=== PATIENT | male | born 1960 | race Caucasian/White ===

== ENCOUNTER 2020-11-21 13:43 | Inpatient (IN) | payer MEDICAID, SELFPAY ==
[2020-11-21] VITALS (11 sets, daily range): BP systolic 152–177; BP diastolic 99–111; PULSE 87–94; RESP 18–29; TEMP 36.9–37; O2SAT 96–99; BMI 26.6
--- NOTE | 2020-11-21 14:52 | ECG_ITS ---
[facility] Test Date: 2020-11-21 Pat Name: Mikal Mancuso Department: Room: Gender: Male [employer]: : 1960 Requested By: Kathya Pratt Order Number: [id number] Hakeem MD: Jonathan Tan M.D. Measurements Intervals [place] Rate: 83 P: 64 PA: 180 QRS: 49 QRSD: 87 T: 55 QT: 358 QTc: 421 Interpretive Statements SINUS RHYTHM POSSIBLE LEFT ATRIAL ENLARGEMENT [-0.1mV P-WAVE IN V1/V2] No previous ECG available for comparison Electronically Signed On 11-21-2020 19:39:33 CDT by Jonathan Tan M.D. [email or web address]) by [id number]
--- NOTE | 2020-11-21 14:52 | XR_ITS ---
WS: [id number] Portable AP upright chest, 11/21/2020 Clinical Data: dyspnea Comparison: None. Findings: No nodules, masses or effusions are seen. The heart is normal. The pulmonary vascularity is not increased. No pneumonia or pneumothorax is seen. The aortic arch and descending thoracic aorta s hows mild tortuosity. The diaphragms are flattened. XR/XR chest 1V portable [id number] Impression: Atherosclerosis and hyperinflation.
--- NOTE | 2020-11-21 14:52 | CT_ITS ---
WS: [id number] CT ABDOMEN AND PELVIS WITH CONTRAST HISTORY: lower abd pain TECHNIQUE: Imaging performed of the abdomen and pelvis with IV contrast. Single phase imaging of the abdomen. Coronal and sagittal reformats are submitted. All CT scans at [facility] use at [address] [facility] one of these dose optimization techniques: automated exposure control; mA and/or kV adjustment per patient size (includes targeted exams where dose is matched to clinical indication); or iterative re construction. IV CONTRAST: Omnipaque 300; 95 mL IV. Oral contrast: Yes. DLP: 1556.95 mGy.cm COMPARISON: None available. Lower thorax: Mild hyperexpansion of the lung bases. Heart is normal size. Moderate size hernia. Liver/biliary system: Normal size with no intrahepatic dilatation. Gallbladder: Mildly contracted gallbladder. No stones or pericholecystic fluid. Pancreas: Normal size pancreas and pancreatic duct. No adjacent inflammation. Spleen: Normal size spleen. No mass or infarct. Adrenal glands: Normal. Right kidney: Mildly enlarged kidney with perinephric stranding. Severe hydroureteronephrosis. Marked tortuosity of the ureter due to long-standing obstruction. Ureter is dilated to the urinary bladder. No stones within the ureter or kidney. Left kidney: Mildly enlarged kidney and perinephric stranding. Severe hydroureteronephrosis. Tortuous dilated ureter to the urinary bladder. Aorta: Mild atherosclerosis with no aneurysm. Lymphadenopathy: There are several retroperitoneal lymph nodes. These lymph nodes are numerous and mi ldly enlarged. The largest measures 10 mm along the inferior RIGHT aorta. There are additional smalle r periaortic and aortocaval lymph nodes. Free fluid: None. GI tract: Normal appendix. No GI tract obstruction. Abdominal wall: Unremarkable abdominal wall. No hernia. Pelvis: Diffuse thickening and irregularity of the bladder wall. There is no focal discrete area of s oft tissue thickening. Bladder is measuring 16.5 cm in length. There is mild prostate gland hypertrop hy. Bones: Mild degenerative disc disease at L5-S1. CT/CT abdomen pelvis w con* [id number] IMPRESSION: 1. Severe bilateral hydroureteronephrosis. Cause of the obstruction may be an overly distended urinary bladder due to bladder hypertrophy and outlet obstruct ion. No stone or mass identified at the UV junctions of either ureter. 2. Markedly overly distended urinary bladder with diffuse bladder wall thicken ing. 3. Small retroperitoneal lymph nodes. Reactive versus early neoplastic disease . 4. Mild enlarged prostate gland.
[2020-11-21] MEDS: iohexol 300 mg/mL 100 mL Btl IV (15:06)
--- NOTE | 2020-11-21 15:23 | ED_ITS ---
HPI - General Adult General: Chief complaint: Abdominal Pain Stated complaint: ABD PAIN, BLOOD IN URINE Time Seen by Provider: 11/21/20 14:38 History of Present Illness: HPI narrative: Patient is a 60-year-old male with history of BPH, chronic urinary retention who presents the emergency room for evaluation of lower abdominal pain. Patient tells me that he has been having abdominal pain x1 week after he developed a rash in the legs extending to the groin lower abdomen x2 weeks. Patient reports the rash is very itchy and occasionally burning. Patient has no other rashes in other parts of the body. Denies any contact with any plants or other allergies. Patient also reports mild blood in the urine and symptoms of dysuria. In addition, patient reports mild shortness of breath, cough, and chest pain in that same time. Denies any fever/chills, prior abdominal surgery, history of renal colic, or contact with Covid personnel. Onset:2 weeks ago (rash), 1 week ago (hydro) Duration:2 weeks Location:ongoing Severity:moderate Review of Systems Narrative: Constitutional: No fever, no chills. HEENT: No vision changes CV: No chest pain, no palpitations PULM: +cough, +dyspnea. GI: +abdominal pain, no N/V/D. : No dysuria MSKEL: No muscle pain SKIN: +leg and groin rash NEURO: No headache, no focal weakness. HEME: No visible bruises PSYCH: Normal mood Physical Exam Narrative: EXAM NARRATIVE: Head: Atraumatic Eyes: PERRL, conjunctiva without injection ENT: Mucous membrane moist NECK: Supple, ROM intact LUNGS: LCTAB, no crackles/rhonchi CV: RRR ABDOMEN: Soft, + mild rash in the lower abdomen, moderate tenderness to palpation of the lower abdomen, moderate CVA tenderness bilaterally, no guarding no rebound tenderness EXTREMITY: +Lacy erythematous purplish rash extending to the groin and loewr abdomen and inner thigh SKIN: +lacy erythematous/mildly excoriated rash on groin, inner thigh, and lower abdomen most pronounced in the skin folds NEURO: Awake and alert, no focal motor deficits PSYCH: Normal mood and affect Course Vital Signs: Vital signs: Vital Signs Temperature 98.3 F 11/22/20 04:00 Pulse Rate 106 H 11/22/20 05:34 Respiratory Rate 19 H 11/22/20 04:00 Blood Pressure 159/99 11/22/20 04:00 Pulse Oximetry 95 11/22/20 04:00 MDM - General Adult MDM Narrative: Medical decision making narrative: 60-year-old gentleman with a history of hypertension, BPH who presents the emergency room for concerns of rash x2 weeks, lower abdominal pain, dysuria, hematuria, shortness of breath. Work-up today including blood work and CT abdomen+pelvis for abdominal pain and chest pain. White count noted to be 15.2. On CT abdomen pelvis, patient is noted to have bilateral hydro with mostly distended bladder findings consistent with cystitis. A Vickers was placed and patient had a return of 1.7 L of fluid. Given significant WBC, Cr of 11.0 and cystitis, patient received a dose of ceftriaxone in the emergency room. Cr elevation is likely post-renal. EKG showing regular sinus rhythm at HT of [83]. Normal axis. No ST elevations/depressions to suggest coronary occlusion. Normal WV, QRS, QT intervals. EKG is nonischemic, x-ray chest within normal limit. Patient does noted to have troponin of 52. Patient received aspirin. Has not had a recent cardiac work- up will be admitted to the hospital for high risk chest pain. Disposition: Admission Lab Data: Labs: Lab Results 11/21/20 11/21/20 11/21/20 Range/Units 14:52 14:58 15:37 WBC 15.2 H (4.0-10.0) 10^3/ uL RBC 3.15 L (4.1-5.3) 10^6/u L Hgb 9.7 L (11.7-16.6) g/dL Hct 29.7 L (42.0-52.0) % MCV 94.3 H (80-94) fl MCH 30.8 (28.0-34.0) pg MCHC 32.7 (30.0-36.0) g/dL RDW 12.5 (12.1-15.1) % Plt Count 303 (130-400) 10^3/c mm MPV 10.9 H (7.4-10.4) fL Neut % (Auto) 76.2 % Lymph % (Auto) 7.9 % [place] % (Auto) 11.8 % Eos % (Auto) 2.2 % Baso % (Auto) 0.5 % Neut # (Auto) 11.58 H (1.8-7.7) 10^3/u L Lymph # (Auto) 1.2 (0.8-4.8) 10^3/u L [place] # (Auto) 1.8 H (0.2-0.9) 10^3/u L Eos # (Auto) 0.3 (0.0-0.8) 10^3/u L Baso # (Auto) 0.1 (0.0-0.1) 10^3/u L Nucleated RBC % (a uto) 0 % Nucleated RBCs # 0.0 /100WBC Sodium (136-145) mmol/L Potassium (3.5-5.1) mmol/L Chloride (98-107) mmol/L Carbon Dioxide (22-29) mmol/L Anion Gap (5-19) BUN (6-20) mg/dL Creatinine (0.7-1.2) mg/dL GFR Calculation (90-130) mL/min Glucose (65-115) mg/dL Calculated Osmolal ity (285-295) mOsm/k g Calcium (8.5-10.5) mg/dL Total Bilirubin (0.15-1.2) mg/dL AST (0-40) U/L ALT (0-41) U/L Alkaline Phosphata se (40-130) IU/L Troponin T Baselin e (0-15) ng/L Total Protein (6.6-8.7) g/dL Albumin (3.5-5.2) g/dL Globulin (1.3-4.6) g/dL Lipase (13-60) U/L Urine Color Yellow (Yellow) Urine Appearance Hazy A (CLEAR) Urine pH 5 (5-7) Ur Specific Gravit y 1.005 (1.005-1.030) Urine Protein 1+ H (Negative) Urine Glucose (UA) Norm (Normal) Urine Ketones Negative (Negative) Urine Blood 3+ H (Negative) Urine Nitrate Positive H (Negative) Urine Bilirubin Neg (Negative) Urine Urobilinogen Norm (Negative) mg/dL Ur Leukocyte Glenny ase 2+ H (Negative) Urine RBC 5-10 H (0-2) /hpf Urine WBC Too numerous to c nt H (0-5) /hpf Ur Squamous Epith Cells None (0-5) /hpf Amorphous Sediment Not Reportable Urine Bacteria 4+ H (NONE) /hpf SARS-CoV-2 Ag (Rap id) Negative (Negative) 11/21/20 11/21/20 Range/Units 15:37 15:37 WBC (4.0-10.0) 10^3/ uL RBC (4.1-5.3) 10^6/u L Hgb (11.7-16.6) g/dL Hct (42.0-52.0) % MCV (80-94) fl MCH (28.0-34.0) pg MCHC (30.0-36.0) g/dL RDW (12.1-15.1) % Plt Count (130-400) 10^3/c mm MPV (7.4-10.4) fL Neut % (Auto) % Lymph % (Auto) % [place] % (Auto) % Eos % (Auto) % Baso % (Auto) % Neut # (Auto) (1.8-7.7) 10^3/u L Lymph # (Auto) (0.8-4.8) 10^3/u L [place] # (Auto) (0.2-0.9) 10^3/u L Eos # (Auto) (0.0-0.8) 10^3/u L Baso # (Auto) (0.0-0.1) 10^3/u L Nucleated RBC % (a uto) % Nucleated RBCs # /100WBC Sodium 130 L (136-145) mmol/L Potassium 4.3 (3.5-5.1) mmol/L Chloride 92 L (98-107) mmol/L Carbon Dioxide 14 L (22-29) mmol/L Anion Gap 28.3 H (5-19) BUN 112 H* (6-20) mg/dL Creatinine 11.0 H* (0.7-1.2) mg/dL GFR Calculation 4.8 L (90-130) mL/min Glucose 120 H (65-115) mg/dL Calculated Osmolal ity 307 H (285-295) mOsm/k g Calcium 9.0 (8.5-10.5) mg/dL Total Bilirubin 0.2 (0.15-1.2) mg/dL AST 11 (0-40) U/L ALT 26 (0-41) U/L Alkaline Phosphata se 110 (40-130) IU/L Troponin T Baselin e 52 H (0-15) ng/L Total Protein 7.2 (6.6-8.7) g/dL Albumin 3.6 (3.5-5.2) g/dL Globulin 3.6 (1.3-4.6) g/dL Lipase 70 H (13-60) U/L Urine Color (Yellow) Urine Appearance (CLEAR) Urine pH (5-7) Ur Specific Gravit y (1.005-1.030) Urine Protein (Negative) Urine Glucose (UA) (Normal) Urine Ketones (Negative) Urine Blood (Negative) Urine Nitrate (Negative) Urine Bilirubin (Negative) Urine Urobilinogen (Negative) mg/dL Ur Leukocyte Glenny ase (Negative) Urine RBC (0-2) /hpf Urine WBC (0-5) /hpf Ur Squamous Epith Cells (0-5) /hpf Amorphous Sediment Urine Bacteria (NONE) /hpf SARS-CoV-2 Ag (Rap id) (Negative) Imaging Data^: Other Imaging: Radiologist's impression: [address] [id number] ReportSigned Patient: Mikal Mancuso #: [id number]: 1960cct#:[id number]/Sex: 60 / MADM Date: 11/21/20[facility]Attending Dr: Ordering Provider/Ordering MD: Kathya Pratt MD Date of Service: 11/21/20 Procedure(s): XR chest 1V portable [id number] Accession Number(s): [id number] Report Number: [id number] WS: [id number] Portable AP upright chest, 11/21/2020 Clinical Data: dyspnea Comparison: None. Findings: No nodules, masses or effusions are seen. The heart is normal. The pulmonary vascularity is not increased. No pneumonia or pneumothorax is seen. The aortic arch and descending thoracic aorta shows mild tortuosity. The diaphragms are flattened. XR/XR chest 1V portable [id number] Impression: Atherosclerosis and hyperinflation. Dictated By:Franca Lechuga MDSigned By:Franca Lechuga MDSigned Date/Time:11/21/20 1521DD/ 1520 [facility] [place], [place] [address]QN Scan ReportSigned Patient: Mikal Mancuso #: [id number]: 1960cct#:[id number]/Sex: 60 / MADM Date: 11/21/20Loc: ERRoom/Bed:Attending Dr: Ordering Provider/Ordering MD: Kathya Pratt MD Date of Service: 11/21/20 Procedure(s): CT abdomen pelvis w con* [id number] Accession Number(s): [id number] Report Number: [id number] WS: [id number] CT ABDOMEN AND PELVIS WITH CONTRAST HISTORY: lower abd pain TECHNIQUE: Imaging performed of the abdomen and pelvis with IV contrast. Single phase imaging of the abdomen. Coronal and sagittal reformats are submitted. All CT scans at [facility] use at least one of these dose optimization techniques: automated exposure control; mA and/or kV adjustment per patient size (includes targeted exams where dose is matched to clinical indication); or iterative reconstruction. IV CONTRAST: Omnipaque 300; 95 mL IV. Oral contrast: Yes. DLP: 1556.95 mGy.cm COMPARISON: None available. Lower thorax: Mild hyperexpansion of the lung bases. Heart is normal size. Moderate size hernia. Liver/biliary system: Normal size with no intrahepatic dilatation. Gallbladder: Mildly contracted gallbladder. No stones or pericholecystic fluid. Pancreas: Normal size pancreas and pancreatic duct. No adjacent inflammation. Spleen: Normal size spleen. No mass or infarct. Adrenal glands: Normal. Right kidney: Mildly enlarged kidney with perinephric stranding. Severe hy droureteronephrosis. Marked tortuosity of the ureter due to long-standing obstruction. Ureter is dilated to the urinary bladder. No stones within the ureter or kidney. Left kidney: Mildly enlarged kidney and perinephric stranding. Severe hydroureteronephrosis. Tortuous dilated ureter to the urinary bladder. Aorta: Mild atherosclerosis with no aneurysm. Lymphadenopathy: There are several retroperitoneal lymph nodes. These lymph nodes are numerous and mildly enlarged. The largest measures 10 mm along the inferior RIGHT aorta. There are additional smaller periaortic and aortocaval lymph nodes. Free fluid: None. GI tract: Normal appendix. No GI tract obstruction. Abdominal wall: Unremarkable abdominal wall. No hernia. Pelvis: Diffuse thickening and irregularity of the bladder wall. There is no focal discrete area of soft tissue thickening. Bladder is measuring 16.5 cm in length. There is mild prostate gland hypertrophy. Bones: Mild degenerative disc disease at L5-S1. CT/CT abdomen pelvis w con* [id number] IMPRESSION: 1. Severe bilateral hydroureteronephrosis. Cause of the obstruction may be an overly distended urinary bladder due to bladder hypertrophy and outlet obstruction. No stone or mass identified at the UV junctions of either ureter. 2. Markedly overly distended urinary bladder with diffuse bladder wall thickening. 3. Small retroperitoneal lymph nodes. Reactive versus early neoplastic disease. 4. Mild enlarged prostate gland. Dictated By:Rubi Caraballo DOSigned By:Rubi Caraballo DOSigned Date/Time:11/21/20 1524DD/ 1517 Discharge Plan Discharge Patient Disposition: Admitted As Inpatient Admit Provider: Elvin Nicole Clinical Impression: Hydronephrosis, Bladder distended, Acute renal failure, Benign prostatic hyperplasia, Elevated troponin I level Condition: Stable Coding Level of Care Code ED Hog Cutter for Andrea Mckenzie
[2020-11-21 15:48] LABS: Specific Gravity, Urine 1.005 (1.005-1.030); Urine Appearance Hazy (CLEAR); Urine Color Yellow (Yellow); pH Urine 5 (5-7)
[2020-11-21 15:48] LABS: SARS Covid-2 Antigen Negative (Negative)
[2020-11-21 15:49] LABS: Add Urine Microscopic? YES; Bilirubin Urine Neg (Negative); Blood Urine 3+ (Negative); Glucose Urine UA Norm (Normal); Ketones Urine Negative (Negative); Leukocyte Esterase Urine 2+ (Negative); Nitrate Urine Positive (Negative); Protein Urine 1+ (Negative); Urobilinogen Urine Norm (Negative)
[2020-11-21 15:51] LABS: Basophils # 0.1 10^3/uL (0.0-0.1); Basophils % 0.5 %; Eosinophils # 0.3 10^3/uL (0.0-0.8); Eosinophils % 2.2 %; Hematocrit 29.7 % (42.0-52.0); Hemoglobin 9.7 g/dL (11.7-16.6); Lymphocytes # 1.2 10^3/uL (0.8-4.8); Lymphocytes % 7.9 %; Mean Corpuscular HGB Conc 32.7 g/dL (30.0-36.0); Mean Corpuscular Hemoglobin 30.8 pg (28.0-34.0); Mean Corpuscular Volume 94.3 fl (80-94); Mean Platelet Volume 10.9 fL (7.4-10.4); Monocytes # 1.8 10^3/uL (0.2-0.9); Monocytes % 11.8 %; Neutrophils # 11.58 10^3/uL (1.8-7.7); Neutrophils % 76.2 %; Nucleated Red Blood Cells % 0 %; Platelet Count 303 10^3/cmm (130-400); Red Blood Count 3.15 10^6/uL (4.1-5.3); Red Cell Distribution Width 12.5 % (12.1-15.1); White Blood Count 15.2 10^3/uL (4.0-10.0)
[2020-11-21 15:54] LABS: Add Urine Culture? Yes; Bacteria Urine 4+ /hpf; WBC Urine TOO NUMEROUS TO CNT /hpf (0-5)
[2020-11-21 16:16] LABS: Alanine Aminotransferase 26 U/L (0-41); Albumin Level 3.6 g/dL (3.5-5.2); Alkaline Phosphatase 110 IU/L (40-130); Anion Gap 28.3 (5-19); Aspartate Amino Transferase 11 U/L (0-40); Carbon Dioxide 14 mmol/L (22-29); Chloride 92 mmol/L (98-107); Globulin 3.6 g/dL (1.3-4.6); Glomerular Filtration Rate 4.8 mL/min (90-130); Glucose 120 mg/dL (65-115); Lipase 70 U/L (13-60); Potassium 4.3 mmol/L (3.5-5.1); Sodium 130 mmol/L (136-145); Total Bilirubin 0.2 mg/dL (0.15-1.2); Total Protein 7.2 g/dL (6.6-8.7)
[2020-11-21 16:20] LABS: Troponin(5th) Baseline 52 ng/L (0-15)
[2020-11-21 16:28] LABS: Blood Urea Nitrogen 112 mg/dL (6-20); Osmolality Calculated 307 mOsm/kg (285-295)
[2020-11-21] MEDS: aspirin 325 mg Tablet PO (16:51)
[2020-11-21] MEDS: cefTRIAXone 1,000 MG in sodium chloride 0.9% (plus) 50 ML 100 MG IV (16:52)
--- NOTE | 2020-11-21 17:12 | PM.HP ---
Providers/Chief Complaint Admitting Physician: Elvin Nicole MD Primary Care Provider: Jeison Beauchamp DO Chief Complaint: ABD PAIN, BLOOD IN URINE History of Present Illness Mikal Mancuso is a 60 year old male with past medical history of BPH, hypertension, came in today with chief complaint of difficulty passing urine for the last few days, complaining of dribbling when he goes to pass urine, followed by intermittent leaking. He is also complaining of intermittent left-sided chest pain which he characterizes as sharp, radiating to the back, lasting few seconds. He is also complaining of worsening shortness of breath going on for the last 6 months. On arrival in the ER he was worked up for above-mentioned complaint. Imaging studies: CT abdomen pelvis w con: Severe bilateral hydroureteronephrosis.Markedly overly distended urinary bladder with diffuse bladder wall thickening.Right kidney: Mildly enlarged kidney with perinephric stranding.Left kidney: Mildly enlarged kidney and perinephric stranding. Xray Chest: No acute pathology, no infiltrates, no pulmonary vascular congestion. EKG: Normal sinus rhythm. Pertinent labs: WBC 15.2, H&H:9.7/29.7, platelet count:303, serum sodium:130, serum potassium:4.3, serum bicarb:14, BUN / serum creatinine : 112/11 Baseline troponin: 52 , 2-hour troponin:49 , 2-hour delta : - 3 Lipase:70 Urinalysis: Dirty Rapid Covid: Negative Review of Systems Const: Denies: fever(s), chills, body aches, change in appetite or diaphoresis Card: Denies: leg pain with exertion Resp: Denies: productive cough, wheezing or pain on inspiration GI: Denies: diarrhea or constipation Musc: Denies: back pain or extremity pain Neuro: Denies: headache(s), difficulty walking or confusion Medications/Allergies Home Medications Medication Instructions Recorded Confirmed Last Taken Type acetaminophen [Tylenol Extended 1,300 mg PO Q4H PRN 11/21/20 11/21/20 Unknown History Release] omeprazole 20 mg PO DAILY PRN 11/21/20 11/21/20 Unknown History Allergies Allergy/AdvReac Type Severity Reaction Status Date / Time No Known Allergies Allergy Verified 11/21/20 14:11 Vitals/I&O/Wt Last Vital Signs Temp 98.6 F 11/21/20 14:12 Pulse 94 11/21/20 16:52 Resp 20 H 11/21/20 16:52 BP 155/108 11/21/20 16:52 Pulse Ox 98 11/21/20 16:52 Weight last 48 hrs Weight 81.647 kg Physical Exam Const: COMMON NORMALS: patient oriented x3 HENMT: COMMON NORMALS: normocephalic and atraumatic HEAD & SCALP: normocephalic and atraumatic Resp: COMMON NORMALS: clear to auscultation bilaterally AUSCULTATION: clear to auscultation bilaterally Cardio: COMMON NORMALS: regular rate, regular rhythm, S1 normal heart sound present, S2 normal heart sound present, No gallops present (Cardio), No murmurs present (Cardio), No rub (Cardio) and Peripheral pulses 2+ throughout RATE: regular rate RHYTHM: regular rhythm HEART SOUNDS: S1 normal heart sound present and S2 normal heart sound present PERIPHERAL PULSES: Peripheral pulses 2+ throughout GI: COMMON NORMALS: Normal to inspection, nondistended, normoactive bowel sounds present, Soft to palpation, non-tender, No hepatosplenomegaly present and no masses AUSCULTATION: Yes normoactive bowel sounds PALPATION: Yes Soft to palpation and Yes No hepatosplenomegaly present RECTAL EXAM: Yes deferred Extremity: COMMON NORMALS: no clubbing, cyanosis or edema and no pedal edema Neuro: COMMON NORMALS: patient oriented x3 Urinary Catheter Management^: Vickers: Cath Placed During This Visit: yes Urinary Catheter Date of Insertion: 11/21/20 Urinary Catheter Time of Insertion: 15:52 Data : 11/21/20 15:37 11/21/20 15:37 A&P Assessment and plan (1) Acute renal failure: Acute renal failure likely secondary to postobstructive uropathy. Monitor BUN and serum creatinine. Continue IV hydration Strict intake output charting Vickers catheter in place Random urine electrolytes: Avoid nephrotoxic Status: Acute (2) Acute pyelonephritis: Follow urine culture. Continue ceftriaxone 1 mg IV every 12 hours daily. Status: Acute (3) UTI (urinary tract infection): Plan as above Status: Acute (4) Chest pain: Troponin trend has been negative: Patient has risk factor for cardiac chest pain. He has been a longtime chronic smoker, hypertension. 2D echo. Telemetry Status: Acute (5) Hyponatremia: Continue IV hydration with normal saline. Status: Acute (6) Metabolic acidosis: High anion gap metabolic acidosis secondary to acute renal failure. Status: Acute (7) Benign prostatic hyperplasia: Status: Acute (8) Hydronephrosis: Status: Acute Additional A&P Information CODE STATUS: Full code DVT Prophylaxis: Heparin 5000 subcu every 12 hours daily Attestations Medical Necessity Statement*: Needs to be in hospital for management of acute renal failure. Anticipated length of stay greater than 2 midnights. Coding Level of Care Code Acute Wash Driller for [facility] Fwd Diagnoses Acute renal failure N17.9 Acute pyelonephritis N10 UTI (urinary tract infection) N39.0 Chest pain R07.9 Hyponatremia E87.1 Metabolic acidosis E87.2 Benign prostatic hyperplasia N40.0 Hydronephrosis N13.30
[2020-11-21 17:49] LABS: Troponin T (5th) Once 49 ng/L (0-15)
[2020-11-21] MEDS: sodium chloride 0.9% 1,000 ML 100 ML IV (18:36)
[2020-11-21] MEDS: heparin 5,000 unit/mL INJ 1 mL 5000 UNIT SUBCUT (18:36)
--- NOTE | 2020-11-21 18:53 | PC.NURSE ---
PATIENT HEATED HIGH FLOW READJUSTED BY THIS NURSE. PATIENT TIGHTENED HEAD STRAP AND PUT CANNULA IN NASAL PASSAGES. PATIENT CONTINUES TO HAVE OXYGEN SATURATION OF 86% TO 87%. PHYSICIAN NOTIFIED, PHYSICIAN ASKED THIS NURSE TO CALL RESPIRATORY. RESPIRATORY NOTIFIED.
[2020-11-21] MEDS: hyDRALAzine 50 mg Tablet PO (21:29)
[2020-11-21] MEDS: acetaminophen 325 mg Tablet 650 MG PO (22:37)
[2020-11-22] VITALS (9 sets, daily range): BP systolic 114–159; BP diastolic 79–99; PULSE 89–106; RESP 17–23; TEMP 36.6–36.8; O2SAT 95–99
[2020-11-22] MEDS: sodium chloride 0.9% 1,000 ML 100 ML IV ×2 (02:35→13:34)
[2020-11-22 05:18] LABS: Basophils # 0.1 10^3/uL (0.0-0.1); Basophils % 0.5 %; Eosinophils # 0.1 10^3/uL (0.0-0.8); Eosinophils % 0.4 %; Hematocrit 35.2 % (42.0-52.0); Hemoglobin 11.3 g/dL (11.7-16.6); Lymphocytes # 1.2 10^3/uL (0.8-4.8); Lymphocytes % 7.2 %; Mean Corpuscular HGB Conc 32.1 g/dL (30.0-36.0); Mean Corpuscular Volume 93.4 fl (80-94); Mean Platelet Volume 11.2 fL (7.4-10.4); Monocytes # 1.2 10^3/uL (0.2-0.9); Monocytes % 6.9 %; Neutrophils # 14.14 10^3/uL (1.8-7.7); Neutrophils % 82.5 %; Nucleated Red Blood Cells % 0 %; Platelet Count 375 10^3/cmm (130-400); Red Blood Count 3.77 10^6/uL (4.1-5.3); Red Cell Distribution Width 12.3 % (12.1-15.1); White Blood Count 17.1 10^3/uL (4.0-10.0)
[2020-11-22] MEDS: heparin 5,000 unit/mL INJ 1 mL 5000 UNIT SUBCUT (05:20)
[2020-11-22 05:37] LABS: INR 1.15 (0.8-1.2)
[2020-11-22 05:50] LABS: Alanine Aminotransferase 25 U/L (0-41); Albumin Level 3.6 g/dL (3.5-5.2); Alkaline Phosphatase 127 IU/L (40-130); Anion Gap 33.5 (5-19); Aspartate Amino Transferase 10 U/L (0-40); Calcium 9.5 mg/dL (8.5-10.5); Chloride 97 mmol/L (98-107); Globulin 4.8 g/dL (1.3-4.6); Glomerular Filtration Rate 4.8 mL/min (90-130); Glucose 112 mg/dL (65-115); Magnesium 1.8 mg/dL (1.7-2.3); Osmolality Calculated 315 mOsm/kg (285-295); Potassium 4.5 mmol/L (3.5-5.1); Sodium 135 mmol/L (136-145); Total Bilirubin 0.2 mg/dL (0.15-1.2); Total Protein 8.4 g/dL (6.6-8.7)
[2020-11-22 05:53] LABS: Carbon Dioxide 9 mmol/L (22-29)
[2020-11-22 06:21] LABS: Blood Urea Nitrogen 108 mg/dL (6-20); Phosphorus 8.8 mg/dL (2.5-4.5)
[2020-11-22] MEDS: HYDROcodone-acetaminophen 5-325 mg Tablet 1 TAB PO ×4 (06:52→20:05)
[2020-11-22 08:09] LABS: Procalcitonin 1.46 ng/mL (0-0.5)
[2020-11-22] MEDS: tamsulosin 0.4 mg Capsule PO (08:49)
[2020-11-22] MEDS: amlodipine 10 mg Tablet PO (08:49)
--- NOTE | 2020-11-22 08:58 | PC.NURSE ---
Patient is resting in bed watching TV, A & O. Has C/O of abdominal pain. Voices no other needs or concerns at this time.
--- NOTE | 2020-11-22 09:00 | USCV_ITS ---
Mikal Mancuso Age: 60 Gender: M : 1960 Exam Date: 11/22/2020 15:04 Ordering Phys: Elvin Nicole MD Technologist: [place] [facility] [place]: [place]B BP: 159 / 99 HR: 95 Rhythm: Sinus Technical Quality: Adequate MEASUREMENTS (Male / Female) Normal Values 2D ECHO LV Diastolic Diameter PLAX 4.7 cm 4.2 - 5.9 / 3.9 - 5.3 cm LV Systolic Diameter PLAX 2.2 cm IVS Diastolic Thickness 1.0 cm 0.6 - 1.0 / 0.6 - 0.9 cm IVS Systolic Thickness 1.4 cm LVPW Diastolic Thickness 1.2 cm 0.6 - 1.0 / 0.6 - 0.9 cm LVPW Systolic Thickness 1.5 cm LVOT Diameter 2.0 cm LV Ejection Fraction 2D Teich 83.9 % LV Ejection Fraction MOD 2C 53.3 % LV Ejection Fraction 2C AL 52.8 % LA Diameter 3.0 cm LA Width 3.4 cm LA Height 4.8 cm RA Width 2.6 cm RA Height 3.8 cm Aorta at Sinotubular Diameter 2.9 cm DOPPLER AV Peak Velocity 141.0 cm/s LVOT Peak Velocity 114.0 cm/s AV Area Cont Eq vti 2.6 cm squared AV Area Cont Eq pk 2.6 cm squared MV Area PHT 5.0 cm squared Mitral E to A Ratio 0.6 MV E' Velocity 35.0 cm/s Mitral E to MV E' Ratio 4.3 Mitral E to LV E' Lateral Ratio 2.9 Mitral E to LV E' Septal Ratio 8.0 TR Peak Velocity 135.0 cm/s TR Peak Gradient 7.3 mmHg TV Peak E Velocity 62.0 cm/s Right Atrial Pressure 3.0 mmHg Pulmonary Artery Systolic Pressu 10.3 mmHg FINDINGS Left Ventricle Normal left ventricular cavity size. Normal left ventricular systolic function. No regional wall motion abnormalities. Left ventricular ejection fraction is estimated at 65 %. Grade I/IV diastolic dysfunction (abnormal relaxation filling pattern), normal to mildly elevated filling pressures. Right Ventricle The right ventricle is normal in size and function. Right Atrium The right atrium is normal in size. Left Atrium The left atrium is normal in size. Mitral Valve Moderately thickened mitral valve. No mitral valve stenosis. No mitral valve regurgitation. Aortic Valve Moderate aortic valve calcification. No aortic valve stenosis. No aortic valve regurgitation. Tricuspid Valve Structurally normal tricuspid valve without significant stenosis or regurgitation. Pulmonary artery systolic pressure is normal. Pulmonic Valve Structurally normal pulmonic valve without significant stenosis. There is no pulmonic regurgitation. Pericardium Normal pericardium without effusion. Aorta Normal ascending aorta dimension. CONCLUSIONS 1-Normal left ventricular cavity size. Normal left ventricular systolic function. No regional wall motion abnormalities. Left ventricular ejection fraction is estimated at 65 %. Grade I/IV diastolic dysfunction (abnormal relaxation filling pattern), normal to mildly elevated filling pressures. 2-Moderate aortic valve calcification. No aortic valve stenosis. No aortic valve regurgitation. 3-Moderately thickened mitral valve. No mitral valve stenosis. No mitral valve regurgitation. 4-There is no pericardial effusion. 5-Pulmonary artery systolic pressure is within normal limits. 6-Right atrial pressure is around 5 mm of mercury. 7-There are no prior echocardiogram studies to compare. Serena Whittington MD (Electronically Signed) Final Date: 22 November 2020 18:07 S
--- NOTE | 2020-11-22 10:24 | PC.CHAP ---
Pastoral Care Encounter/Spiritual Assessment Type of Contact [] Declined thermoforming operator visit [] Patient/Family/Request visit [] Outpatient visit [] Follow-up visit [] Physician referral [] Code/Alert [x] Routine visit [] Staff referral [] Actively dying [] Patient sleeping [] Family support [] [] Out of room [] Palliative care [] [x] Receiving care in room [] Pre-surgical visit [] Trauma [x] Long length of stay [] ICU visit [] Other: Relational/Emotional Strength [] Patient feels connected with others/family/visitors/staff [] Distress [] Loneliness/isolation [] Abandonment Spirituality of Patient [x] Person of Taryn [] Attends Religious of their Taryn [x] Believes in Prayer [] Reads Bible or Cheondoism materials [] There are Spiritual issues to be addressed Culinary Intern Interventions [x] Prayer [x] Active listening [x] Non-anxious presence [x] Spiritual/emotional support [] Crisis/trauma care [x] Spiritual counseling [] Bereavement support [] Provided bereavement packet [] Provided Bible/devotional materials [] Provided toy/stuffed animal, coloring book to patient or family member [] Provided Communion [] Anointing/[place] [] Salvation [x] Completed spiritual assessment [] Other: Impact on Illness or Injury [] Angry [] Fearful [x] Anxious [] Often cries [] Exhaustion [x] Unable to work [] Unable to attend religion [] Unable to walk/stand [] Unable to read [] Unable to drive [] Unable to eat/drink [] Unable to sleep [] Unable to be with family [] Patient intubated [] Other: Summary ABD feeling better wiating on doctors report has a posstive attitude and wants to go home Time spent with patient 10 mins
--- NOTE | 2020-11-22 14:45 | P.PN_ITS ---
Subjective Subjective: Interval history: Patient was seen and examined this morning, continues to have good urine output. Hematuria is clearing. Denies any shortness of breath. Medications: Reviewed: Yes Vitals/I&O/Wt Last Vital Signs Temp 98.0 F 11/22/20 12:00 Pulse 95 11/22/20 12:00 Resp 17 11/22/20 12:00 BP 125/86 11/22/20 12:00 Pulse Ox 96 11/22/20 12:00 11/21/20 11/22/20 11/22/20 22:59 06:59 14:59 Intake Total 50 / 50 1098.333 / 8933.747 2322 / 1400 Output Total 3850 / 3850 1700 / 1700 Balance 50 / 50 -2751.667 / -2701.667 -300 / -300 Weight last 48 hrs Weight 78.97 kg Weight 81.647 kg Physical Exam Const: COMMON NORMALS: patient oriented x3 HENMT: COMMON NORMALS: normocephalic and atraumatic HEAD & SCALP: normocephalic and atraumatic Resp: COMMON NORMALS: clear to auscultation bilaterally AUSCULTATION: clear to auscultation bilaterally Cardio: COMMON NORMALS: regular rate, regular rhythm, S1 normal heart sound present, S2 normal heart sound present, No gallops present (Cardio), No murmurs present (Cardio), No rub (Cardio) and Peripheral pulses 2+ throughout RATE: regular rate RHYTHM: regular rhythm HEART SOUNDS: S1 normal heart sound present and S2 normal heart sound present PERIPHERAL PULSES: Peripheral pulses 2+ throughout GI: COMMON NORMALS: Normal to inspection, nondistended, normoactive bowel sounds present, Soft to palpation, non-tender, No hepatosplenomegaly present and no masses AUSCULTATION: Yes normoactive bowel sounds PALPATION: Yes Soft to palpation and Yes No hepatosplenomegaly present RECTAL EXAM: Yes deferred Extremity: COMMON NORMALS: no clubbing, cyanosis or edema and no pedal edema Neuro: COMMON NORMALS: patient oriented x3 Urinary Catheter Management^: Vickers: Cath Placed During This Visit: yes Reason for Continuing Indwelling Catheter: Acute Urinary Retention or Obstruction Urinary Catheter Date of Insertion: 11/21/20 Urinary Catheter Time of Insertion: 15:52 Data : 11/22/20 04:35 11/22/20 04:35 Micro: Microbiology 11/21/20 17:19 Blood Culture - Preliminary Blood SPECIMEN COLLECTED 11/21/20 17:45 Blood Culture - Preliminary Blood SPECIMEN COLLECTED A&P Assessment and plan (1) Acute renal failure: Acute renal failure secondary to postobstructive uropathy. Monitor BUN and serum creatinine. Continue IV hydration Strict intake output charting Vickers catheter in place Random urine electrolytes: Avoid nephrotoxic Status: Acute (2) Acute pyelonephritis: urine culture. Coagulase-negative staph Continue ceftriaxone 1 mg IV every 12 hours daily. Status: Acute (3) UTI (urinary tract infection): Plan as above Status: Acute (4) Chest pain: Troponin trend has been negative: Patient has risk factor for cardiac chest pain. He has been a longtime chronic smoker, hypertension. 2D echo. Telemetry Status: Acute (5) Hyponatremia: Hypovolemic hyponatremia: Resolved Continue IV hydration with normal saline. Status: Acute (6) Metabolic acidosis: High anion gap metabolic acidosis secondary to acute renal failure. Status: Acute (7) Benign prostatic hyperplasia: Tamsulosin 0.4 mg p.o. daily Status: Acute (8) Hydronephrosis: Status: Acute (9) Hematuria: Likely secondary to obstructive uropathy. Status: Acute Additional A&P Information CODE STATUS: Full code DVT Prophylaxis: Heparin 5000 subcu every 12 hours daily Attestations Medical Necessity Statement*: Patient needs to be in hospital for management of acute renal failure. Coding Level of Care Code Acute Grade School Teacher for [facility] Fwd Exam Detailed Diagnoses Acute renal failure N17.9 Acute pyelonephritis N10 UTI (urinary tract infection) N39.0 Chest pain R07.9 Hyponatremia E87.1 Metabolic acidosis E87.2 Benign prostatic hyperplasia N40.0 Hydronephrosis N13.30 Hematuria R31.9
[2020-11-22 16:20] LABS: Coronavirus Test Green County Not Detected
[2020-11-22] MEDS: cefTRIAXone 1,000 MG in sodium chloride 0.9% (plus) 50 ML 100 MG IV (16:35)
[2020-11-22] MEDS: sevelamer 800 mg Tablet PO (20:05)
[2020-11-23] VITALS (8 sets, daily range): BP systolic 101–139; BP diastolic 67–79; PULSE 70–94; RESP 16–20; TEMP 36.4–37.3; O2SAT 96–100; BMI 25.7
[2020-11-23] MEDS: HYDROcodone-acetaminophen 5-325 mg Tablet 1 TAB PO ×4 (01:05→19:39)
[2020-11-23] MEDS: sodium chloride 0.9% 1,000 ML 100 ML IV ×2 (01:06→10:10)
[2020-11-23 05:00] LABS: Basophils # 0.1 10^3/uL (0.0-0.1); Basophils % 0.5 %; Eosinophils # 0.6 10^3/uL (0.0-0.8); Eosinophils % 4.3 %; Hematocrit 30.9 % (42.0-52.0); Lymphocytes # 1.8 10^3/uL (0.8-4.8); Mean Corpuscular HGB Conc 32.4 g/dL (30.0-36.0); Mean Corpuscular Hemoglobin 30.1 pg (28.0-34.0); Mean Corpuscular Volume 93.1 fl (80-94); Mean Platelet Volume 10.9 fL (7.4-10.4); Monocytes # 1.3 10^3/uL (0.2-0.9); Neutrophils # 9.87 10^3/uL (1.8-7.7); Neutrophils % 70.9 %; Nucleated Red Blood Cells % 0 %; Platelet Count 364 10^3/cmm (130-400); Red Blood Count 3.32 10^6/uL (4.1-5.3); Red Cell Distribution Width 12.3 % (12.1-15.1); White Blood Count 13.9 10^3/uL (4.0-10.0)
[2020-11-23 05:17] LABS: Alanine Aminotransferase 17 U/L (0-41); Albumin Level 3.1 g/dL (3.5-5.2); Alkaline Phosphatase 99 IU/L (40-130); Anion Gap 24.9 (5-19); Aspartate Amino Transferase 7 U/L (0-40); Calcium 8.7 mg/dL (8.5-10.5); Carbon Dioxide 14 mmol/L (22-29); Chloride 100 mmol/L (98-107); Globulin 4.1 g/dL (1.3-4.6); Glomerular Filtration Rate 5.2 mL/min (90-130); Glucose 122 mg/dL (65-115); Magnesium 1.7 mg/dL (1.7-2.3); Osmolality Calculated 311 mOsm/kg (285-295); Potassium 3.9 mmol/L (3.5-5.1); Sodium 135 mmol/L (136-145); Total Bilirubin 0.2 mg/dL (0.15-1.2); Total Protein 7.2 g/dL (6.6-8.7)
[2020-11-23 05:43] LABS: Slide Review Slide Review Perform
[2020-11-23 05:45] LABS: Blood Urea Nitrogen 97 mg/dL (6-20)
[2020-11-23 05:46] LABS: Phosphorus 8.4 mg/dL (2.5-4.5)
[2020-11-23] MEDS: tamsulosin 0.4 mg Capsule PO (08:36)
[2020-11-23] MEDS: amlodipine 10 mg Tablet PO (08:36)
[2020-11-23] MEDS: sevelamer 800 mg Tablet PO ×3 (08:36→20:20)
--- NOTE | 2020-11-23 10:46 | PM.PN ---
Subjective Subjective: Interval history: Patient was seen and examined this morning, was complaining of itching.Deny any other complain. Medications: Reviewed: Yes Vitals/I&O/Wt Last Vital Signs Temp 98.1 F 11/23/20 08:00 Pulse 90 11/23/20 08:00 Resp 16 11/23/20 08:00 BP 118/77 11/23/20 08:00 Pulse Ox 96 11/23/20 08:00 11/22/20 11/23/20 11/23/20 22:59 06:59 14:59 Intake Total 650 / 2050 1350 / 3400 1386.667 / 1386.667 Output Total 1850 / 3550 1750 / 5300 Balance -1200 / -1500 -400 / -1900 1386.667 / 1386.667 Weight last 48 hrs Weight 78.97 kg Weight 78.97 kg Weight 81.647 kg Physical Exam Const: COMMON NORMALS: patient oriented x3 HENMT: COMMON NORMALS: normocephalic and atraumatic HEAD & SCALP: normocephalic and atraumatic Resp: COMMON NORMALS: clear to auscultation bilaterally AUSCULTATION: clear to auscultation bilaterally Cardio: COMMON NORMALS: regular rate, regular rhythm, S1 normal heart sound present, S2 normal heart sound present, No gallops present (Cardio), No murmurs present (Cardio), No rub (Cardio) and Peripheral pulses 2+ throughout RATE: regular rate RHYTHM: regular rhythm HEART SOUNDS: S1 normal heart sound present and S2 normal heart sound present PERIPHERAL PULSES: Peripheral pulses 2+ throughout GI: COMMON NORMALS: Normal to inspection, nondistended, normoactive bowel sounds present, Soft to palpation, non-tender, No hepatosplenomegaly present and no masses AUSCULTATION: Yes normoactive bowel sounds PALPATION: Yes Soft to palpation and Yes No hepatosplenomegaly present RECTAL EXAM: Yes deferred Extremity: COMMON NORMALS: no clubbing, cyanosis or edema and no pedal edema Neuro: COMMON NORMALS: patient oriented x3 Urinary Catheter Management^: Vickers: Cath Placed During This Visit: yes Reason for Continuing Indwelling Catheter: Acute Urinary Retention or Obstruction Urinary Catheter Date of Insertion: 11/21/20 Urinary Catheter Time of Insertion: 15:52 Data : 11/23/20 04:25 11/23/20 04:25 Micro: Microbiology 11/21/20 17:19 Blood Culture - Preliminary Blood NEGATIVE TO DATE 11/21/20 17:45 Blood Culture - Preliminary Blood NEGATIVE TO DATE 11/21/20 14:52 Urine Culture - Preliminary Urine,Clean Catch Coagulase negativ staphylococc A&P Assessment and plan (1) Acute renal failure: Acute renal failure secondary to postobstructive uropathy. Monitor BUN and serum creatinine. Continue IV hydration lactated ringers @100cc/hr Strict intake output charting Vickers catheter in place Random urine electrolytes: Avoid nephrotoxic Status: Acute (2) Acute pyelonephritis: urine culture. Coagulase-negative staph Blood Culture:Negative Continue ceftriaxone 1 mg IV every 24 hours daily. Status: Acute (3) UTI (urinary tract infection): Plan as above Status: Acute (4) Chest pain: Troponin trend has been negative: Patient has risk factor for cardiac chest pain. He has been a longtime chronic smoker, hypertension. 2D echo: Normal LV cavity and systolic function. EF 65%. Grossly normal valves. Grade 1 diastolic dysfunction. Telemetry Status: Acute (5) Hyponatremia: Hypovolemic hyponatremia: Resolved Status: Acute (6) Metabolic acidosis: High anion gap metabolic acidosis secondary to acute renal failure. Status: Acute (7) Benign prostatic hyperplasia: Tamsulosin 0.4 mg p.o. daily. Urology On board Status: Acute (8) Hydronephrosis: B/L Hydronephrosis 2/2 to obstructive uropathy. Status: Acute (9) Hematuria: Likely secondary to obstructive uropathy, with subsequent bladder decompression post Vickers placement. Status: Acute Additional A&P Information CODE STATUS: Full code DVT Prophylaxis: Heparin 5000 subcu every 12 hours daily Attestations Medical Necessity Statement*: In hospital for management of acute renal failure. Coding Level of Care Code Acute Managing Jeweler for [facility] Diagnoses Acute renal failure N17.9 Acute pyelonephritis N10 UTI (urinary tract infection) N39.0 Chest pain R07.9 Hyponatremia E87.1 Metabolic acidosis E87.2 Benign prostatic hyperplasia N40.0 Hydronephrosis N13.30 Hematuria R31.9
--- NOTE | 2020-11-23 12:47 | P.CONIM_ITS ---
Providers/Reason For Consult Consulting Physician/Specialty*: nephrology Reason for Consult*: zachery Attending Physician: Elvin Nicole MD Primary Care Provider: Jeison Beauchamp DO History of Present Illness History of Present Illness Thank you for consultation, today had the pleasure of reviewing this very pleasant 60-year-old gentleman for evaluation of acute kidney injury. He initially presented to the emergency room complaining of increasing urinary incontinence, increasingly weak stream. He also has some intermittent left- sided chest pain, sharp, radiating to the back, lasting for few seconds. Following hospitalization initial CT scan demonstrated severe bilateral hydrour eteronephrosis. Subsequently he had a Vickers catheter placed, and he has been successfully draining since. He is also on intravenous fluid. He did have some lower extremity edema prior to hospitalization, however, this is now resolved. He denies any uremic symptoms and denies any other hypervolemic symptoms. He does describe an episode of urinary obstruction a year ago which required Vickers catheter, however, this was subsequently removed and he denied initial symptoms. The symptoms seem to have gotten worse, increasingly so over the last few weeks. He denies any acute or chronic kidney disease, is never seen a new car get ready mechanic or received hemodialysis. We do not have any historic data, admission serum creatinine was 11 which is trended down to 10.2 today. He also has an overt anion gap metabolic acidosis, which is also improving now. He denies any other potential exposures to nephrotoxic substances including anti-inflammatory medications, IV contrast etc. Hemodynamics reviewed, remained stable following hospitalization. Review of Systems Narrative: ROS - 12 point review of systems completed per HPI and subjective assessment, this includes Constitutional: No weakness, fatigue Respiratory: No SOB on exertion, comfortable at rest CardioVasc: No chest pain, palpitations Gastrointestinal: No nausea, no vomiting Neurological: No seizures, no AMS Derm: No new rashes, lesions or wounds Immunological: No seasonal and no food allergies Meds/Allergies Home Medications and Allergies Home Medications Medication Instructions Recorded Confirmed Last Taken Type acetaminophen [Tylenol Extended 1,300 mg PO Q4H PRN 11/21/20 11/21/20 Unknown History Release] omeprazole 20 mg PO DAILY PRN 11/21/20 11/21/20 Unknown History Allergies Allergy/AdvReac Type Severity Reaction Status Date / Time No Known Allergies Allergy Verified 11/21/20 14:11 Current Medications Current Medications Generic Name Dose Route Start Last Admin Trade Name Julianna PRN Reason Stop Dose Admin Acetaminophen 650 mg 11/21/20 17:02 11/21/20 22:37 Acetaminophen 325 Mg Tablet PO 650 mg Q6H PRN Administration Mild/Mod Pain Or Temp >/= 101 Hydrocodone Bitart/Acetaminophen 1 tab 11/22/20 05:15 11/23/20 10:10 Hydrocodone-Acetaminophen 5-325 Mg Tablet PO 1 tab Q4H PRN Administration MODERATE TO SEVERE PAIN Amlodipine Besylate 10 mg 11/22/20 09:00 11/23/20 08:36 Amlodipine 10 Mg Tablet PO 10 mg DAILY ADILENE Administration Ceftriaxone Sodium 1,000 mg/ 50 mls @ 100 mls/hr 11/22/20 17:00 11/22/20 17:10 Sodium Chloride IV Infused Q24H ADILENE Infusion Protocol Sevelamer Carbonate 800 mg 11/22/20 21:00 11/23/20 08:36 Sevelamer 800 Mg Tablet PO 800 mg TID ADILENE Administration Tamsulosin HCl 0.4 mg 11/22/20 09:00 11/23/20 08:36 Tamsulosin 0.4 Mg Capsule PO 0.4 mg DAILY ADILENE Administration Vitals/I&O/Wt Last Vital Signs Temp 97.6 F 11/23/20 11:53 Pulse 70 11/23/20 11:53 Resp 17 11/23/20 11:53 BP 139/69 11/23/20 11:53 Pulse Ox 97 11/23/20 11:53 11/22/20 11/23/20 11/23/20 22:59 06:59 14:59 Intake Total 650 / 2050 1350 / 3400 1386.667 / 1386.667 Output Total 1850 / 3550 1750 / 5300 Balance -1200 / -1500 -400 / -1900 1386.667 / 1386.667 Weight last 48 hrs Weight 78.97 kg Weight 78.97 kg Weight 81.647 kg Physical Exam Narrative: EXAM NARRATIVE: Constitutional: Awake, comfortable HEENT: Wet mucosa, no jvp, non icteric Lungs: Bilaterally clear without discernible wheeze, rales in all lung zones CVS: S1 S2, no murmurs Abdo: Soft, BS ok Ext 4: Minimal edema, peripheral perfusion with no cyanosis Neurological: Grossly non-focal Urinary Catheter Management^: Vickers: Cath Placed During This Visit: yes Reason for Continuing Indwelling Catheter: Acute Urinary Retention or Obstruction Urinary Catheter Date of Insertion: 11/21/20 Urinary Catheter Time of Insertion: 15:52 Data Micro: Micro: Microbiology 11/21/20 17:19 Blood Culture - Pr eliminary Blood NEGATIVE TO HALINA E 11/21/20 17:45 Blood Culture - Pr eliminary Blood NEGATIVE TO HALINA E 11/21/20 14:52 Urine Culture - Pr eliminary Urine,Clean Catch Coagulase negat iv staphylococc A&P Additional A&P Information 1. Acute kidney injury We do not have any historic lab data to know his baseline. This is obviously secondary to obstructive uropathy and is already improving with decompression of his urinary system. Only time will tell in terms of his potential for recovery. Continue gentle IV hydration for the time being No further diagnostic testing is required other than a daily renal panel and monitoring of his urine output. Dose medication for GFR less than 15 Strict ins and outs 2. Obstructive uropathy Likely secondary to BPH. Dr. Schwartz from urology will be consulted, possible for outpatient management. He may need TURP versus intermittent self- catheterization. Defer this to Dr. Schwartz. 3. Chemistry Anion gap metabolic acidosis, likely secondary to uremia. This is already getting better, and so in itself requires no additional diagnostic testing. We will switch IV fluids to lactated Ringer's as it is a little more pH balanced. 4. Disposition Likely keep him through the weekend with plan to discharge Thursday or Thursday of next week depending on the trend of his serum creatinine. Thank you for consultation, as always it is a pleasure to follow these cases with you Federico Gonzales MD Nephrology [phone] Patient seen and examined via telemedicine, with the assistance of the bedside RN > 25 min spent in evaluation and mgmt of patient Coding Level of Care Code Acute Biometrics Consultant for [facility]
[2020-11-23] MEDS: dextrose 5%-lactated ringers 1,000 ML 100 ML IV ×2 (13:37→23:11)
--- NOTE | 2020-11-23 15:38 | PC.CHAP ---
Pastoral Care Encounter/Spiritual Assessment Type of Contact [] Declined machining supervisor visit [] Patient/Family/Request visit [] Outpatient visit [xx] Follow-up visit [] Physician referral [] Code/Alert [xx] Routine visit [] Staff referral [] Actively dying [] Patient sleeping [] Family support [] [] Out of room [] Palliative care [] [] Receiving care in room [] Pre-surgical visit [] Trauma [xx] Long length of stay [] ICU visit [] Other: Relational/Emotional Strength [xx] Patient feels connected with others/family/visitors/staff [] Distress [] Loneliness/isolation [] Abandonment Spirituality of Patient [xx] Person of Taryn [xx] Attends Oriental Orthodox of their Taryn [xx] Believes in Prayer [xx] Reads Bible or Buddhism materials [] There are Spiritual issues to be addressed Fire Engine Pump Operator Interventions [xx] Prayer [xx] Active listening xx] Non-anxious presence [] Spiritual/emotional support [] Crisis/trauma care [] Spiritual counseling [] Bereavement support [] Provided bereavement packet [xx] Provided Bible/devotional materials [] Provided toy/stuffed animal, coloring book to patient or family member [] Provided Communion [] Anointing/[place] [] Salvation [xx] Completed spiritual assessment [] Other: Impact on Illness or Injury [] Angry [] Fearful [] Anxious [] Often cries [] Exhaustion [] Unable to work [xx] Unable to attend evangelical [] Unable to walk/stand [] Unable to read [] Unable to drive [] Unable to eat/drink [] Unable to sleep [] Unable to be with family [] Patient intubated [] Other: Summary 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 Patient feeling better but still has some complications. May go home soon. Time spent with patient 22 minutes
[2020-11-23] MEDS: cefTRIAXone 1,000 MG in sodium chloride 0.9% (plus) 50 ML 100 MG IV (15:44)
[2020-11-23] MEDS: diphenhydrAMINE 25 mg Capsule PO (15:44)
--- NOTE | 2020-11-23 17:12 | P.CONIM_ITS ---
Providers/Reason For Consult Consulting Physician/Specialty*: Urology/Schwartz Reason for Consult*: Urinary retention with obstructive uropathy Attending Physician: Elvin Nicole MD Primary Care Provider: Jeison Beauchamp DO History of Present Illness History of Present Illness Mikal Mancuso is a 60 year old male who I evaluated for the first time today at the request of Dr. Nicole. He was admitted with renal failure secondary to bladder outlet obstruction. Creatinine was 11.[address] scan showed a severely distended bladder with chronic trabeculation and bilateral hydroureteronephrosis with some atrophy of the parenchyma. His clinical picture correlates with that. He has had progressive bladder outlet obstructive symptoms for a long time and more recently developed essentially just dribbling for urination with feeling of incomplete emptying. At the last 2 or 3 days before his admission he was developing increasing suprapubic pain and bloating. Catheter placement yielded 1700 cc. He had a transient episode of gross hematuria for a couple days following catheter placement but his urine is cleared. Creatinine has decreased somewhat. In the past he had been on Flomax for several years and he thought he voided better and he quit and ultimately thought he was doing well until the above progression of symptoms. I discussed with him the importance of good bladder management which entails first indwelling Vickers catheter for period of time followed by cystoscopy void ing trial and SCIC instruction. Reviewed that his bladder may be so severely damaged that he has no recovery of spontaneous voiding but also that he may well recover detrusor function and with aggressive treatment of his prostatic enlargement either with medical therapy or surgical therapy he could recover. He seemed to follow the conversation well and was willing to continue further evaluation that was recommended. Review of Systems Const: Denies: fever(s) or chills Eyes: Denies: change in vision or yellow eyes ENMT: Denies: hoarseness Card: Denies: chest pain or palpitations Resp: Denies: wheezing or hemoptysis GI: Reports: abdominal pain and bloating (Suprapubic); Denies: hematochezia : Reports: difficulty urinating, urinary urgency, urinary dribbling, difficulty starting urination and change in urine stream; Denies: flank pain or testicular mass Musc: Denies: joint redness or joint warmth Skin/Breast: Reports: rash Neuro: Denies: confusion, Slurred speech present or seizure-like activity Psych: Denies: anxiety or depression Endo: Denies: flushing Renny/Lymph: Denies: easy bruising or easy bleeding All/Imm: Denies: acute wheezing Meds/Allergies Home Medications and Allergies Home Medications Medication Instructions Recorded Confirmed Last Taken Type acetaminophen [Tylenol Extended 1,300 mg PO Q4H PRN 11/21/20 11/21/20 Unknown History Release] omeprazole 20 mg PO DAILY PRN 11/21/20 11/21/20 Unknown History Allergies Allergy/AdvReac Type Severity Reaction Status Date / Time No Known Allergies Allergy Verified 11/21/20 14:11 Current Medications Current Medications Generic Name Dose Route Start Last Admin Trade Name Freq PRN Reason Stop Dose Admin Acetaminophen 650 mg 11/21/20 17:02 11/21/20 22:37 Acetaminophen 325 Mg Tablet PO 650 mg Q6H PRN Administration Mild/Mod Pain Or Temp >/= 101 Hydrocodone Bitart/Acetaminophen 1 tab 11/22/20 05:15 11/23/20 10:10 Hydrocodone-Acetaminophen 5-325 Mg Tablet PO 1 tab Q4H PRN Administration MODERATE TO SEVERE PAIN Amlodipine Besylate 10 mg 11/22/20 09:00 11/23/20 08:36 Amlodipine 10 Mg Tablet PO 10 mg DAILY ADILENE Administration Diphenhydramine HCl 25 mg 11/23/20 11:24 11/23/20 15:44 Diphenhydramine 25 Mg Capsule PO 25 mg Q4H PRN Administration ITCHING Ceftriaxone Sodium 1,000 mg/ 50 mls @ 100 mls/hr 11/22/20 17:00 11/23/20 16:22 Sodium Chloride IV Infused Q24H ADILENE Infusion Protocol Dextrose/Lactated Ringer's 1,000 mls @ 100 mls/hr 11/23/20 12:30 11/23/20 13:37 Dextrose 5%-Lactated Ringers IV 100 mls/hr .Q10H ADILENE Administration Sevelamer Carbonate 800 mg 11/22/20 21:00 11/23/20 15:44 Sevelamer 800 Mg Tablet PO 800 mg TID ADILENE Administration Tamsulosin HCl 0.4 mg 11/22/20 09:00 11/23/20 08:36 Tamsulosin 0.4 Mg Capsule PO 0.4 mg DAILY ADILENE Administration PFSH Acute PFSH: Medical History (Updated 11/23/20 @ 17:18 by Randall Schwartz MD) BPH loc w urin obs/LUTS Hydronephrosis Obstructive uropathy Urinary retention Vitals/I&O/Wt Last Vital Signs Temp 97.8 F 11/23/20 15:26 Pulse 94 11/23/20 15:26 Resp 17 11/23/20 15:26 BP 106/69 11/23/20 15:26 Pulse Ox 100 11/23/20 15:26 11/23/20 11/23/20 11/23/20 06:59 14:59 22:59 Intake Total 1350 / 3400 2626.667 / 2626.667 50 / 2676.667 Output Total 1750 / 5300 Balance -400 / -1900 2626.667 / 2626.667 50 / 2676.667 Weight last 48 hrs Weight 174 lb 1.6 oz Weight 174 lb 1.6 oz Physical Exam Const: COMMON NORMALS: no acute distress, alert and well nourished GENERAL APPEARANCE: well kempt and well developed ORIENTATION/CONSCIOUSNESS: not confused HENMT: COMMON NORMALS: normocephalic and atraumatic HEAD & SCALP: normocephalic and atraumatic Eye: COMMON NORMALS: conjunctivae normal and no scleral icterus CONJUNCTIVA: Yes conjunctivae normal Neck/C-Spine: COMMON NORMALS: full ROM GENERAL: Yes normal visual inspection Resp: COMMON NORMALS: normal respiratory effort EFFORT & INSPECTION: No labored and No Actively coughing GI: COMMON NORMALS: Soft to palpation PALPATION: Yes Soft to palpation RECTAL EXAM: Yes visual inspection normal, Yes normal sphincter tone, Yes prostate normal (4+ without nodularity) and No mass : MALE GROIN/PERINEUM EXAM: No ecchymosis and No hernia PENIS: normal penis MEATUS: meatus normal, no meatla discharge and No Blood at meatus present SCROTUM: Yes testes descended bilaterally, No edematous and No scrotal swelling TESTES: No absent testicle, No testicular tenderness, No testicular mass, Yes epididymides normal and No epididymal tenderness Neuro: SENSORIUM/ORIENTATION: Yes alert Psych: COMMON NORMALS: mental status grossly normal APPEARANCE: Yes grossly normal and Yes well kempt ATTITUDE: Yes calm and Yes engaged Skin: COMMON NORMALS: no rashes or lesions noted and no jaundice GENERAL SKIN EXAM: no rashes or lesions noted Urinary Catheter Management^: Vickers: Cath Placed During This Visit: yes Reason for Continuing Indwelling Catheter: Acute Urinary Retention or Obstruction Urinary Catheter Date of Insertion: 11/21/20 Urinary Catheter Time of Insertion: 15:52 Data Micro: Micro: Microbiology 11/21/20 14:52 Urine Culture - Fi nal Urine,Clean Catch Staphylococcus epidermidis 11/21/20 17:19 Blood Culture - Pr eliminary Blood NEGATIVE TO HALINA E 11/21/20 17:45 Blood Culture - Pr eliminary Blood NEGATIVE TO HALINA E A&P Assessment and plan (1) Urinary retention: 1700 cc in the bladder. Evidence of chronic obstructive uropathy secondary to bladder obstruction. Currently treated with indwelling Vickers catheter. Reviewed plans for the future including cystoscopy, self-catheterization, potential treatment for primary obstruction versus long-term management if detrusor dysfunction persists. Status: Acute (2) BPH loc w urin obs/LUTS: Status: Acute (3) Obstructive uropathy: Status: Acute (4) Bladder distended: Status: Deleted (5) Hydronephrosis: Status: Acute Consult Attestations Medical Necessity Statement: See attending Coding Level of Care Code Acute Gi Technician for [facility] Diagnoses Urinary retention R33.9 BPH loc w urin obs/LUTS N40.1 Obstructive uropathy N13.9 Bladder distended N32.89 Hydronephrosis N13.30
[2020-11-24 04:00] VITALS: BP 108/72; PULSE 86; RESP 18; TEMP 36.9; O2SAT 97
[2020-11-24 06:00] VITALS: BMI 25.7
[2020-11-24 06:39] LABS: Basophils # 0.1 10^3/uL (0.0-0.1); Basophils % 0.5 %; Eosinophils # 0.9 10^3/uL (0.0-0.8); Eosinophils % 6.5 %; Hematocrit 30.8 % (42.0-52.0); Hemoglobin 9.8 g/dL (11.7-16.6); Lymphocytes # 1.6 10^3/uL (0.8-4.8); Lymphocytes % 10.7 %; Mean Corpuscular HGB Conc 31.8 g/dL (30.0-36.0); Mean Corpuscular Hemoglobin 29.7 pg (28.0-34.0); Mean Corpuscular Volume 93.3 fl (80-94); Mean Platelet Volume 10.9 fL (7.4-10.4); Monocytes # 1.4 10^3/uL (0.2-0.9); Neutrophils # 10.07 10^3/uL (1.8-7.7); Neutrophils % 69.5 %; Nucleated Red Blood Cells % 0 %; Platelet Count 379 10^3/cmm (130-400); Red Cell Distribution Width 12.2 % (12.1-15.1); White Blood Count 14.5 10^3/uL (4.0-10.0)
[2020-11-24 06:59] LABS: Alanine Aminotransferase 15 U/L (0-41); Albumin Level 3.3 g/dL (3.5-5.2); Alkaline Phosphatase 91 IU/L (40-130); Anion Gap 23.7 (5-19); Aspartate Amino Transferase 8 U/L (0-40); Calcium 8.2 mg/dL (8.5-10.5); Carbon Dioxide 16 mmol/L (22-29); Chloride 103 mmol/L (98-107); Globulin 4.2 g/dL (1.3-4.6); Glomerular Filtration Rate 6.1 mL/min (90-130); Glucose 114 mg/dL (65-115); Magnesium 1.7 mg/dL (1.7-2.3); Osmolality Calculated 318 mOsm/kg (285-295); Phosphorus 7.1 mg/dL (2.5-4.5); Potassium 3.7 mmol/L (3.5-5.1); Sodium 139 mmol/L (136-145); Total Bilirubin 0.2 mg/dL (0.15-1.2); Total Protein 7.5 g/dL (6.6-8.7)
[2020-11-24 07:20] LABS: Blood Urea Nitrogen 94 mg/dL (6-20)
--- NOTE | 2020-11-24 08:29 | P.PN_ITS ---
Subjective Subjective: Interval history: Mikal is doing well today with no acute complaints. Seen by Dr. Schwartz yesterday, his input is appreciated. Eating and drinking okay, remains on a clear liquid diet. No more nausea or vomiting. No extremity edema, shortness of breath. Vickers catheter is comfortable, urine appears clear. Medications: Reviewed: Yes Vitals/I&O/Wt Last Vital Signs Temp 98.4 F 11/24/20 04:00 Pulse 86 11/24/20 04:00 Resp 18 11/24/20 04:00 BP 108/72 11/24/20 04:00 Pulse Ox 97 11/24/20 04:00 11/23/20 11/24/20 11/24/20 22:59 06:59 14:59 Intake Total 770 / 3396.667 956.667 / 4353.334 Output Total 1600 / 1600 2400 / 4000 Balance -830 / 1796.667 -1443.333 / 353.334 Weight last 48 hrs Weight 78.97 kg Physical Exam Narrative: EXAM NARRATIVE: Constitutional: Awake, comfortable HEENT: Wet mucosa, no jvp, non icteric Lungs: Bilaterally clear without discernible wheeze, rales in all lung zones CVS: S1 S2, no murmurs Abdo: Soft, BS ok Ext 4: Minimal edema, peripheral perfusion with no cyanosis Neurological: Grossly non-focal Urinary Catheter Management^: Vickers: Cath Placed During This Visit: yes Reason for Continuing Indwelling Catheter: Acute Urinary Retention or Ob struction Urinary Catheter Date of Insertion: 11/21/20 Urinary Catheter Time of Insertion: 15:52 Data : 11/24/20 05:34 11/24/20 05:34 Micro: Microbiology 11/21/20 14:52 Urine Culture - Final Urine,Clean Catch Staphylococcus epidermidis A&P Additional A&P Information 1. Acute kidney injury We do not have any historic lab data to know his baseline. This is obviously secondary to obstructive uropathy and is already improving with decompression of his urinary system. Only time will tell in terms of his potential for recovery. DC ivf today, oral intake is encouraged No further diagnostic testing is required other than a daily renal panel and monitoring of his urine output. Dose medication for GFR less than 15 Strict ins and outs 2. Obstructive uropathy Likely secondary to BPH. Dr. Schwartz from urology will be consulted, possible for outpatient management. He may need TURP versus intermittent self- catheterization. Defer this to Dr. Schwartz. 3. Chemistry Anion gap metabolic acidosis, likely secondary to uremia. This is already getting better, and so in itself requires no additional diagnostic testing. Phos coming down with recovery of renal function, DC binder therapy 4. Disposition ok for DC from my perspective follow up with Urology, will see him tomorrow if he remains in house Thank you for consultation, as always it is a pleasure to follow these cases with you Federico Gonzales MD Nephrology [phone] Patient seen and examined via telemedicine, with the assistance of the bedside RN > 25 min spent in evaluation and mgmt of patient Attestations Medical Necessity Statement*: PERRY Coding Level of Care Code Acute Aerobics Teacher for [facility]ck[facility]
[2020-11-24 08:41] VITALS: BP 100/63; PULSE 82; RESP 17; TEMP 36.4; O2SAT 99
[2020-11-24] MEDS: tamsulosin 0.4 mg Capsule PO (09:44)
[2020-11-24] MEDS: HYDROcodone-acetaminophen 5-325 mg Tablet 1 TAB PO ×2 (09:52→22:07)
--- NOTE | 2020-11-24 10:48 | PM.PN ---
Subjective Subjective: Interval history: Urology follow-up: Resting comfortably. Urine is clear. Creatinine decreased to 8.9 today. Recommend continue Vickers, follow-up outpatient for cystoscopy [facility] training etc. Continue alpha-rohan Vitals/I&O/Wt Last Vital Signs Temp 97.6 F 11/24/20 08:41 Pulse 82 11/24/20 08:41 Resp 17 11/24/20 08:41 BP 100/63 11/24/20 08:41 Pulse Ox 99 11/24/20 08:41 11/23/20 11/24/20 11/24/20 22:59 06:59 14:59 Intake Total 770 / 3396.667 956.667 / 4353.334 981.667 / 981.667 Output Total 1600 / 1600 2400 / 4000 Balance -830 / 1796.667 -1443.333 / 353.334 981.667 / 981.667 Weight last 48 hrs Weight 174 lb 1.6 oz Weight 174 lb 1.6 oz Physical Exam Const: COMMON NORMALS: no acute distress GENERAL APPEARANCE: well kempt and well developed ORIENTATION/CONSCIOUSNESS: not confused HENMT: COMMON NORMALS: normocephalic and atraumatic HEAD & SCALP: normocephalic and atraumatic Neck/C-Spine: COMMON NORMALS: full ROM Resp: COMMON NORMALS: normal respiratory effort EFFORT & INSPECTION: No labored and No Actively coughing Neuro: COMMON NORMALS: no focal motor deficits Psych: APPEARANCE: Yes well kempt Urinary Catheter Management^: Vickers: Cath Placed During This Visit: yes Reason for Continuing Indwelling Catheter: Acute Urinary Retention or Obstruction Urinary Catheter Date of Insertion: 11/21/20 Urinary Catheter Time of Insertion: 15:52 Data : 11/24/20 05:34 11/24/20 05:34 Micro: Microbiology 11/21/20 14:52 Urine Culture - Final Urine,Clean Catch Staphylococcus epidermidis A&P Assessment and plan (1) Urinary retention: Status: Acute (2) Hydronephrosis: Status: Acute (3) Obstructive uropathy: Status: Acute (4) BPH loc w urin obs/LUTS: Status: Acute Attestations Medical Necessity Statement*: See attending Coding Level of Care Code Acute Senior Talent Management Consultant for [facility]ckenzie Diagnoses Urinary retention R33.9 Hydronephrosis N13.30 Obstructive uropathy N13.9 BPH loc w urin obs/LUTS N40.1
[2020-11-24 13:25] VITALS: BP 107/67; PULSE 91; RESP 16; TEMP 36.8; O2SAT 98
--- NOTE | 2020-11-24 14:29 | P.PN_ITS ---
Subjective Subjective: Interval history: Patient was seen and examined this morning overall he is doing better, serum creatinine and BUN is improving. He denies any itching. Medications: Reviewed: Yes Vitals/I&O/Wt Last Vital Signs Temp 98.3 F 11/24/20 13:25 Pulse 91 11/24/20 13:25 Resp 16 11/24/20 13:25 BP 107/67 11/24/20 13:25 Pulse Ox 98 11/24/20 13:25 11/23/20 11/24/20 11/24/20 22:59 06:59 14:59 Intake Total 770 / 3396.667 956.667 / 4353.334 981.667 / 981.667 Output Total 1600 / 1600 2400 / 4000 Balance -830 / 1796.667 -1443.333 / 353.334 981.667 / 981.667 Weight last 48 hrs Weight 78.97 kg Weight 78.97 kg Physical Exam Const: COMMON NORMALS: patient oriented x3 HENMT: COMMON NORMALS: normocephalic and atraumatic HEAD & SCALP: normocephalic and atraumatic Resp: COMMON NORMALS: clear to auscultation bilaterally AUSCULTATION: clear to auscultation bilaterally Cardio: COMMON NORMALS: regular rate, regular rhythm, S1 normal heart sound present, S2 normal heart sound present, No gallops present (Cardio), No murmurs present (Cardio), No rub (Cardio) and Peripheral pulses 2+ throughout RATE: regular rate RHYTHM: regular rhythm HEART SOUNDS: S1 normal heart sound present and S2 normal heart sound present PERIPHERAL PULSES: Peripheral p ulses 2+ throughout GI: COMMON NORMALS: Normal to inspection, nondistended, normoactive bowel sounds present, Soft to palpation, non-tender, No hepatosplenomegaly present and no masses AUSCULTATION: Yes normoactive bowel sounds PALPATION: Yes Soft to palpation and Yes No hepatosplenomegaly present RECTAL EXAM: Yes deferred Extremity: COMMON NORMALS: no clubbing, cyanosis or edema and no pedal edema Neuro: COMMON NORMALS: patient oriented x3 Urinary Catheter Management^: Vickers: Cath Placed During This Visit: yes Reason for Continuing Indwelling Catheter: Acute Urinary Retention or Obstruction Urinary Catheter Date of Insertion: 11/21/20 Urinary Catheter Time of Insertion: 15:52 Data : 11/24/20 05:34 11/24/20 05:34 Micro: Microbiology 11/21/20 14:52 Urine Culture - Final Urine,Clean Catch Staphylococcus epidermidis A&P Assessment and plan (1) Acute renal failure: Acute renal failure secondary to postobstructive uropathy secondary to BPH. Monitor BUN and serum creatinine. Continue IV hydration lactated ringers @100cc/hr Strict intake output charting Vickers catheter in place Random urine electrolytes: Avoid nephrotoxic Status: Acute (2) Acute pyelonephritis: urine culture. Coagulase-negative staph Blood Culture:Negative Continue ceftriaxone 1 mg IV every 24 hours daily. Status: Acute (3) UTI (urinary tract infection): Plan as above Status: Acute (4) Chest pain: Troponin trend has been negative: Patient has risk factor for cardiac chest pain. He has been a longtime chronic smoker, hypertension. 2D echo: Normal LV cavity and systolic function. EF 65%. Grossly normal valves. Grade 1 diastolic dysfunction. Telemetry Status: Acute (5) Hyponatremia: Hypovolemic hyponatremia: Resolved Status: Acute (6) Metabolic acidosis: High anion gap metabolic acidosis secondary to acute renal failure. Status: Acute (7) Benign prostatic hyperplasia: Tamsulosin 0.4 mg p.o. daily. Urology On board Status: Deleted (8) Hydronephrosis: B/L Hydronephrosis 2/2 to obstructive uropathy. Status: Acute (9) Hematuria: Likely secondary to obstructive uropathy, with subsequent bladder decompression post Vickers placement. Status: Acute Additional A&P Information CODE STATUS: Full code DVT Prophylaxis: Heparin 5000 subcu every 12 hours daily Attestations Medical Necessity Statement*: Patient needs to be in hospital for management of PERRY Coding Level of Care Code Acute Temporary Help Agency Referral Clerk for [facility] Fwd Diagnoses Acute renal failure N17.9 Acute pyelonephritis N10 UTI (urinary tract infection) N39.0 Chest pain R07.9 Hyponatremia E87.1 Metabolic acidosis E87.2 Benign prostatic hyperplasia N40.0 Hydronephrosis N13.30 Hematuria R31.9
[2020-11-24 16:17] VITALS: BP 110/65; PULSE 79; RESP 18; TEMP 36.4; O2SAT 99
[2020-11-24] MEDS: cefTRIAXone 1,000 MG in sodium chloride 0.9% (plus) 50 ML 100 MG IV (17:42)
[2020-11-24 20:00] VITALS: BP 106/71; PULSE 108; RESP 18; TEMP 36.6; O2SAT 99
[2020-11-25] VITALS: BP 113/70; PULSE 95; RESP 18; TEMP 36.9; O2SAT 97
[2020-11-25 04:00] VITALS: BP 107/69; PULSE 99; RESP 16; TEMP 36.7; O2SAT 98
--- NOTE | 2020-11-25 07:51 | PM.PN ---
Subjective Subjective: Interval history: pt is thirsty. no n/v/f/c/iglesias/d/cp. has large diuresis Medications: Reviewed: Yes Medication Review Details: Current Medications Acetaminophen (Acetaminophen 325 Mg Tablet) 650 mg PO Q6H PRN PRN Reason: Mild/Mod Pain Or Temp >/= 101 Last Admin: 11/21/20 22:37 Dose: 650 mg Documented by: Hydrocodone Bitart/Acetaminophen (Hydrocodone-Acetaminophen 5-325 Mg Tablet) 1 tab PO Q4H PRN PRN Reason: MODERATE TO SEVERE PAIN Last Admin: 11/24/20 22:07 Dose: 1 tab Documented by: Amlodipine Besylate (Amlodipine 5 Mg Tablet) 5 mg PO DAILY ADILENE Last Admin: 11/24/20 10:18 Dose: Not Given Documented by: Bisacodyl (Bisacodyl 5 Mg Tablet) 10 mg PO DAILY PRN; Protocol PRN Reason: Constipation (see protocol) Diphenhydramine HCl (Diphenhydramine 25 Mg Capsule) 25 mg PO Q4H PRN PRN Reason: ITCHING Last Admin: 11/23/20 15:44 Dose: 25 mg Documented by: Ceftriaxone Sodium 1,000 mg/ (Sodium Chloride) 50 mls @ 100 mls/hr IV Q24H ADILENE; Protocol Last Infusion: 11/24/20 19:25 Dose: Infused Documented by: Ondansetron HCl (Ondansetron 2 Mg/Ml Sdv 2 Ml) 4 mg IVP Q8H PRN PRN Reason: vomiting, or N/V if npo Tamsulosin HCl (Tamsulosin 0.4 Mg Capsule) 0.4 mg PO DAILY ADILENE Last Admin: 11/24/20 09:44 Dose: 0.4 mg Documented by: Vitals/I&O/Wt Last Vital Signs Temp 98.0 F 11/25/20 04:00 Pulse 99 11/25/20 04:00 Resp 16 11/25/20 04:00 BP 107/69 11/25/20 04:00 Pulse Ox 98 11/25/20 04:00 11/24/20 11/25/20 11/25/20 22:59 06:59 14:59 Intake Total 50 / 1271.667 240 / 1511.667 Output Total 1550 / 3300 1275 / 4575 Balance -1500 / -2028.333 -1035 / -3063.333 Weight last 48 hrs Weight 78.471 kg Weight 78.97 kg Physical Exam Narrative: EXAM NARRATIVE: comfortable in bed, NARD vs noted heent- nc/at, eomi, anicteric neck supple lungs clear b/l heart reg, no rub abd soft, nt, nd, +BS exy no edmea + dos santos Urinary Catheter Management^: Dos Santos: Cath Placed During This Visit: yes Reason for Continuing Indwelling Catheter: Acute Urinary Retention or Obstruction Urinary Catheter Date of Insertion: 11/21/20 Urinary Catheter Time of Insertion: 15:52 Data : 11/24/20 05:34 11/24/20 05:34 A&P Additional A&P Information 1. Acute kidney injury We do not have any historic lab data to know his baseline. -working dx is obstructive uropathy and is already improving with decompression of his urinary system. Only time will tell in terms of his potential for recovery. -based on labs will give ivf as large volume diuresis Dose medication for GFR less than 15 Strict ins and outs 2. Obstructive uropathy Likely secondary to BPH. Dr. Schwartz from urology will be consulted, possible for outpatient management. He may need TURP versus intermittent self-catheterization. Defer this to Dr. Schwartz. 3. Chemistry Anion gap metabolic acidosis, likely secondary to uremia. This is already getting better, and so in itself requires no additional diagnostic testing. Phos coming down with recovery of renal function, monitor check vit d levels Patient seen and examined via telemedicine, with the assistance of the bedside RN > 25 min spent in evaluation and mgmt of patient Attestations Medical Necessity Statement*: zachery Time Spent in Patient Care: 16 - 35 minutes Coding Level of Care Code Acute [employer] Estates Attorney for Andrea Mckenzie
[2020-11-25 07:56] VITALS: BP 118/75; PULSE 94; RESP 16; TEMP 36.7; O2SAT 99
[2020-11-25] MEDS: tamsulosin 0.4 mg Capsule PO (09:09)
[2020-11-25] MEDS: amlodipine 5 mg Tablet PO (09:09)
[2020-11-25] MEDS: lactated ringers 1,000 ML 100 ML IV (09:09)
[2020-11-25 11:08] VITALS: BP 110/74; PULSE 87; RESP 18; TEMP 37.4; O2SAT 98
[2020-11-25 13:14] LABS: Alanine Aminotransferase 16 U/L (0-41); Albumin Level 3.3 g/dL (3.5-5.2); Alkaline Phosphatase 97 IU/L (40-130); Anion Gap 21.5 (5-19); Aspartate Amino Transferase 9 U/L (0-40); Blood Urea Nitrogen 67 mg/dL (6-20); Carbon Dioxide 19 mmol/L (22-29); Chloride 101 mmol/L (98-107); Globulin 4.8 g/dL (1.3-4.6); Glomerular Filtration Rate 7.5 mL/min (90-130); Glucose 90 mg/dL (65-115); Osmolality Calculated 305 mOsm/kg (285-295); Potassium 3.5 mmol/L (3.5-5.1); Sodium 138 mmol/L (136-145); Total Bilirubin 0.2 mg/dL (0.15-1.2); Total Protein 8.1 g/dL (6.6-8.7)
--- NOTE | 2020-11-25 13:36 | PM.DCS ---
Discharge Providers Date of Admission: 11/21/20 16:28 Date of Discharge: November 25, 2020 Attending Provider at Admission: Elvin Nicole MD Attending Provider at Discharge: Elvin Nicole MD Primary Care Provider: Jeison Beauchamp DO Diagnoses at Discharge Discharge Diagnosis (1) Acute renal failure: Status: Acute (2) Acute pyelonephritis: Status: Acute (3) UTI (urinary tract infection): Status: Acute (4) Chest pain: Status: Acute (5) Hyponatremia: Status: Acute (6) Metabolic acidosis: Status: Acute (7) Benign prostatic hyperplasia: Status: Deleted (8) Hydronephrosis: Status: Acute (9) Hematuria: Status: Acute Reason for Visit Reason for Visit: ABD PAIN, BLOOD IN URINE Hospital Course Hospital Course 60 year old male with past medical history of BPH, hypertension, came in today with chief complaint of difficulty passing urine for the last few days, complaining of dribbling when he goes to pass urine, followed by intermittent leaking. He is also complaining of intermittent left-sided chest pain which he characterizes as sharp, radiating to the back, lasting few seconds. He is also complaining of worsening shortness of breath going on for the last 6 months. On arrival in the ER he was worked up for above-mentioned complaint. Imaging studies: CT abdomen pelvis w con: Severe bilateral hydroureteronephrosis.Markedly overly distended urinary bladder with diffuse bladder wall thickening.Right kidney: Mildly enlarged kidney with perinephric stranding.Left kidney: Mildly enlarged kidney and perinephric stranding. Xray Chest: No acute pathology, no infiltrates, no pulmonary vascular congestion. EKG: Normal sinus rhythm. Pertinent labs: WBC 15.2, H&H:9.7/29.7, platelet count:303, serum sodium:130, serum potassium:4.3, serum bicarb:14, BUN / serum creatinine : 112/11 .Baseline troponin: 52 , 2-hour troponin:49 , 2-hour delta : - 3 . Lipase:70 . Urinalysis: Dirty Rapid Covid: Negative. During this hospital stay he was managed for PERRY secondary to postobstructive uropathy secondary to BPH, Vickers catheter was placed, BMP was monitored, IV hydration was continued, patient responded well to the above management, BUN serum creatinine was trending down, patient had no uremic symptoms no signs of volume overload, no electrolyte abnormalities. Renal was on board, urology was on board, patient is being discharged home with indwelling Vickers cath, he will follow urology as an outpatient, for further management of BPH. He was also managed for acute pyelonephritis, was kept on ceftriaxone, urine culture grew Staph epidermidis, sensitive to ceftriaxone.Blood culture was negative. Patient also had hematuria during this hospital stay hemoglobin was stable , hematuria was likely secondary to bladder decompression, with subsequent loss of tamponade effect, from distended bladder. 2D echo was also done during the hospital stay as the patient was complaining of progressively worsening shortness of breath as well as on and off chest,Normal LV cavity and systolic function. EF 65%. Grossly normal valves. Grade 1 diastolic dysfunction.Chest pain has resolved at the time of. Advised to see primary care physician as well as veterinary medicine teacher as an outpatient for further chest pain work-up. He was also managed for UTI, hypovolemic hyponatremia, metabolic acidosis secondary to PERRY. Patient responded well to the above medical management.He was discharged in stable condition and will follow urology as well as renal as outpatient. Physical Exam Const: COMMON NORMALS: patient oriented x3 HENMT: COMMON NORMALS: normocephalic and atraumatic HEAD & SCALP: normocephalic and atraumatic Resp: COMMON NORMALS: clear to auscultation bilaterally AUSCULTATION: clear to auscultation bilaterally Cardio: COMMON NORMALS: regular rate, regular rhythm, S1 normal heart sound present, S2 normal heart sound present, No gallops present (Cardio), No murmurs present (Cardio), No rub (Cardio) and Peripheral pulses 2+ throughout RATE: regular rate RHYTHM: regular rhythm HEART SOUNDS: S1 normal heart sound present and S2 normal heart sound present PERIPHERAL PULSES: Peripheral pulses 2+ throughout GI: COMMON NORMALS: Normal to inspection, nondistended, normoactive bowel sounds present, Soft to palpation, non-tender, No hepatosplenomegaly present and no masses AUSCULTATION: Yes normoactive bowel sounds PALPATION: Yes Soft to palpation and Yes No hepatosplenomegaly present RECTAL EXAM: Yes deferred Extremity: COMMON NORMALS: no clubbing, cyanosis or edema and no pedal edema Neuro: COMMON NORMALS: patient oriented x3 Urinary Catheter Management^: Vickers: Cath Placed During This Visit: yes Reason for Continuing Indwelling Catheter: Acute Urinary Retention or Obstruction Urinary Catheter Date of Insertion: 11/21/20 Urinary Catheter Time of Insertion: 15:52 Discharge Data Data Completed and Pending: Completed Studies During Hospitalization Category Date Time Status CT abdomen pelvis w con* [id number] Urge nt Cat Scan 11/21/20 14:52 Completed XR chest 1V sacha ble [id number] Stat Exams 11/21/20 14:52 Completed CV. echo complete * [id number] Routine Ultrasound 11/22/20 09:00 Completed Pending at discharge Category Date Time Status 25 Hydroxy Vitami n D AM LABS Lab 11/26/20 04:00 Ordered Blood Culture Rou erik Lab 11/21/20 17:19 Results CMP [Comprehensiv e Metabolic Panel] AM LABS Lab 11/26/20 04:00 Ordered CMP [Comprehensiv e Metabolic Panel] AM LABS Lab 11/27/20 04:00 Ordered CMP [Comprehensiv e Metabolic Panel] AM LABS Lab 11/28/20 04:00 Ordered Complete Blood Co unt w/Auto AM [facility]S Lab 11/26/20 04:00 Ordered Complete Blood Co unt w/Auto AM LABS Lab 11/27/20 04:00 Ordered Complete Blood Co unt w/Auto AM LABS Lab 11/28/20 04:00 Ordered Comprehensive Met abolic Panel AM LA BS Lab 11/26/20 04:00 Ordered Comprehensive Met abolic Panel AM LA BS Lab 11/27/20 04:00 Ordered Comprehensive Met abolic Panel AM LA BS Lab 11/28/20 04:00 Ordered Magnesium AM LABS Lab 11/26/20 04:00 Ordered Magnesium AM LABS Lab 11/27/20 04:00 Ordered Magnesium AM LABS Lab 11/28/20 04:00 Ordered Phosphorus AM LAB S Lab 11/26/20 04:00 Ordered Phosphorus AM LAB S Lab 11/27/20 04:00 Ordered Phosphorus AM LAB S Lab 11/28/20 04:00 Ordered Urine Random Lyte s Routine Lab 11/23/20 17:28 Ordered Vitamin D 1,25 Di hydroxy Routine Lab 11/25/20 12:13 Received Labs from last 24 hours 11/25/20 11/25/20 12:13 12:13 Sodium 138 Potassium 3.5 Chloride 101 Carbon Dioxide 19 L Anion Gap 21.5 H BUN 67 H Creatinine 7.5 H* GFR Calculation 7.5 L Glucose 90 Calculated Osmolal ity 305 H Calcium 9.0 Total Bilirubin 0.2 AST 9 ALT 16 Alkaline Phosphata se 97 Total Protein 8.1 Albumin 3.3 L Globulin 4.8 H 25-OH Vitamin D To colin Pending 1,25 Dihydroxy Vit D2 Pending 1,25 Dihydroxy Vit D3 Pending Vitals: Last Vital Signs Temp 99.3 F 11/25/20 11:08 Pulse 87 11/25/20 11:08 Resp 18 11/25/20 11:08 BP 110/74 11/25/20 11:08 Pulse Ox 98 11/25/20 11:08 Discharge Plan Discharge Patient Disposition: Home Condition: Stable Prescriptions: New tamsulosin 0.4 mg Capsule 0.4 mg PO DAILY 30 Days Qty: 30 RF: 3 Continued acetaminophen 650 mg Tablet Extended Release 1,300 mg PO Q4H PRN (Reason: Pain) RF: 0 omeprazole 20 mg Capsule,Delayed Release(Dr/Ec) 20 mg PO DAILY PRN (Reason: Acid Reflux) RF: 0 Discharge Orders: Discharge Order (Routine); Ordered 11/25/20 Ordered By: Elvin Nicole Other Ambulatory Orders: Basic Metabolic Panel (Routine) Timeframe: 1 Week Facility: [facility] - Location: Lab - Main Lab Ordered By: Elvin Nicole Referrals: Jeison Beauchamp DO [Primary Care Provider] - 12/03/20 1:00 pm (Please call office on Thursday at [phone] and make appointment for 1 week from discharge. You will see Dr. Beauchamp at the [facility]. ) Ismael Kirk MD [Referring] - 2 weeks (Please call office on Thursday at [phone] and make appointment for 2 weeks from discharge. Discharge summary and labs faxed to Dr. Kirk for follow up appointment, his office will call pt with appointment. ) Randall Schwartz MD [Physician] - 12/14/20 10:30 am (Please call office on Thursday at [phone] and make appointment for 1 week from discharge. ) Discharge Diet: Regular Discharge Activity: Resume usual activity Patient Instructions: Tamsulosin (By mouth), Acute Kidney Injury (DC), Hydronephrosis (DC), Opioid Safety Discharge Attestations Time Spent in Discharge Care*: less than 30 min Specific Discharge Activities: educating patient, educating and/or supporting family/caregiver, discussing with pcp/other providers, discussing with behavioral health case manager/social workers/dc planners, documenting/other paperwork and evaluating patient/reviewing data Status at Discharge: Cognitive status at discharge: cognitively intact, Behavioral status at discharge: cooperative, Functional status at discharge: independent ambulation Overall status at discharge: patient is back to baseline Quality Metrics Clinical Quality Measures During this hospital stay, did patient experience: None Coding Level of Care Code Acute Chg FW DC note Exam Detailed Diagnoses Acute renal failure N17.9 Acute pyelonephritis N10 UTI (urinary tract infection) N39.0 Chest pain R07.9 Hyponatremia E87.1 Metabolic acidosis E87.2 Benign prostatic hyperplasia N40.0 Hydronephrosis N13.30 Hematuria R31.9
--- NOTE | 2020-11-25 14:06 | PC.NURSE ---
Notified Dr Nicole that patient's creatinine is 7.5
--- NOTE | 2020-11-25 15:01 | PC.NURSE ---
discharge instructions given to patient and patient verbalized understanding of instructions. patient called and she is coming to pick him up. patient dressed. Teaching on dos santos care and leg bag done with patient.
[2020-11-25 15:23] VITALS: RESP 18
--- NOTE | 2020-11-25 16:51 | PC.NURSE ---
patient taken to private vehicle via wheelchair by staff.
[2020-11-25 16:52] VITALS: BP 110/74; PULSE 87; RESP 18; TEMP 37.4; O2SAT 98
--- NOTE | 2020-11-27 14:35 | PC.SOCIAL ---
discharge follow up call made. patient follow up appointments made with Dr. Beauchamp and Dr. Schwartz. Patient given those dates and times. All info faxed to Dr. Kirk for follow up, his office will call the patient, patient is aware. Patient is taking Flomax as prescribed. Feeling better. No other concerns voiced.
[2020-11-30 13:16] LABS: Vit D 1,25 (Oh)2, Total 10 pg/mL (18-72); Vit D2 1,25 (Oh)2 <8 pg/mL; Vit D3 1,25 (Oh)2 10 pg/mL
== END 2020-11-25 16:53 | disposition home or self-care (01) | DRG 683 ==
LOC: ER 16:40 → CSU 11-22 06:37 → MEDSURG 11-23 07:30
PROVIDERS: Internal Medicine Nephrology; Admitting Provider Internal Medicine; Emergency Provider Emergency Medicine; PCP Family Medicine; Visit Provider Internal Medicine
DX: N17.9 Acute kidney failure, unspecified (principal); N13.8 Other obstructive and reflux uropathy; N39.0 Urinary tract infection, site not specified; E87.1 Hypo-osmolality and hyponatremia; E87.2 Acidosis; N32.0 Bladder-neck obstruction; N10 Acute pyelonephritis; N13.30 Unspecified hydronephrosis; N40.1 Benign prostatic hyperplasia with lower urinary tract symptoms; R21 Rash and other nonspecific skin eruption; I10 Essential (primary) hypertension; R33.9 Retention of urine, unspecified; Z20.822 Contact with and (suspected) exposure to COVID-19
CPT/HCPCS: 36415; 51702; 71045; 74177; 80053; 81001; 82652; 83690; 83735; 84100; 84145; 84484; 85025; 85610; 85730; 87040; 87077; 87086; 87186; 87426; 87635; 93005; 93306; 96365; 96372; 99285; J0696; J1644; J7030; Q3014; Q9967

== ENCOUNTER 2021-01-17 11:20 | Emergency (ER) | payer MEDICAID, SELFPAY ==
[2021-01-17 11:35] VITALS: BP 137/81; PULSE 76; RESP 16; TEMP 36.9; O2SAT 100; BMI 27.7
--- NOTE | 2021-01-17 15:20 | W.ED.GENADLT ---
HPI - General Adult General: Chief complaint: Urogenital-Male Stated complaint: STATES BLADDER BACK UP AGAIN P/PCP Time Seen by Provider: 01/17/21 15:04 History of Present Illness: HPI narrative: Patient is a 61-year-old male with a history of urinary retention requiring indwelling Dos Santos who presents the emergency room with request of his primary care provider for elevated white count and abdominal distention. Patient tells me that he since seen Dr. Schwartz on 12/14 2020. Patient has been able to self cath up to 3 weeks ago at which point he was unable to do so. However, he has been able to void in the mean time. Since then, he has noticed his worsening abdominal distention with to see his primary doctor and was told to go to the emergency room after blood work. Patient denies any fever or chills, decreased p.o. intake, flank pain, nausea/vomiting,. He ports incomplete voiding. Denies any dysuria, hematuria, polyuria. No new penile discharge. Onset: chronic Duration:ongoing Location:home Severity:moderate/severe Review of Systems Narrative: Constitutional: No fever, no chills. HEENT: No vision changes CV: No chest pain, no palpitations PULM: no cough, no dyspnea. GI: +lower abdominal pain, no N/V/D. +abdominal/suprapubic distension : No dysuria MSKEL: No muscle pain SKIN: No new rashes, no lesions. NEURO: No headache, no focal weakness. HEME: No visible bruises PSYCH: Normal mood PFSH ED PFSH: Medical History (Updated 01/25/21 @ 00:01 by ) BPH loc w urin obs/LUTS Hydronephrosis Obstructive uropathy Urinary retention Family History Mother , AT AGE 85 UNCONTROLLED HEMORRHAGING Bleeding disorder Father , AT AGE 70 BLADDER CANCER Cancer Other CAD (coronary artery disease) Diabetes Social History Smoking and tobacco status: current every day smoker Alcohol intake: never Marital status: Current occupational status: unemployed Physical Exam Narrative: EXAM NARRATIVE: Head: Atraumatic Eyes: PERRL, conjunctiva without injection ENT: Mucous membrane moist NECK: Supple, ROM intact LUNGS: LCTAB, no crackles/rhonchi CV: RRR ABDOMEN: Soft, +abdominal distension, +focal TTP in the suprapubic area. NO guarding rebound, guarding, rigidity. No CVA tenderness to percussion. Neg Taylor/Neg McBurney's point tenderness. EXTREMITY: Normal ROM SKIN: No rash or erythema NEURO: Awake and alert, no focal motor deficits PSYCH: Normal mood and affect Course Vital Signs: Vital signs: Vital Signs Temperature 98.4 F 01/17/21 11:35 Pulse Rate 72 01/17/21 18:04 Respiratory Rate 14 01/17/21 18:04 Blood Pressure 138/91 01/17/21 18:04 Pulse Oximetry 100 01/17/21 11:35 MDM - General Adult MDM Narrative: Medical decision making narrative: Patient is a 61-year-old male with a history of chronic retention requiring indwelling Dos Santos previously self cathing presenting to the emergency room with worsening abdominal distention and unsuccessful self cath x3 weeks. Patient reports voiding but reports incomplete voiding. Patient has abdominal distention suprapubic tenderness palpation on exam. Vitals within normal. No CVA tenderness. Workup: CBC, CMP, Lipase, UA Intervention: Indwelling dos santos He have a return of 900 cc of urine initially. Since then, patient has less than one hundreds cc of urine returned in less than 3 hours. Ate the present time, I do not think the patient need observation for electrolyte monitoring since he does not have significant diuresis. He is noted to be 3 today. However compared to his previous readings of over 10, this is a significant improvement. I discussed this finding with patient and offered him with patient. However, upon hearing this, patient declined to be admitted today and likes to follow-up with his PCP and Dr. Schwartz outpatient urgently to reassess urinary retention. Patient does not have any white count of 9.0. No signs of dysuria/polyuria/hematuria at this time. Patient is aware of the need for close outpatient follow-up. Disposition: Discharge. Patient counseled regarding diagnostic impression, treatment plan. Patient given ED strict return precautions to return for continuation, worsening, or development of new symptoms. Instructed to f/u w/ PCP and Urology regarding symptoms today. Patient verbalized understanding. Lab Data: Labs: Lab Results 01/17/21 01/17/21 16:11 16:11 WBC 9.0 10^3/uL 10^3/ uL (4.0-10.0) RBC 3.92 10^6/uL L 10 ^6/uL (4.1-5.3) Hgb 11.6 g/dL L g/dL (11.7-16.6) Hct 37.5 % L % (42.0-52.0) MCV 95.7 fl H fl (80-94) MCH 29.6 pg pg (28.0-34.0) MCHC 30.9 g/dL g/dL (30.0-36.0) RDW 12.9 % % (12.1-15.1) Plt Count 284 10^3/cmm 10^3 /cmm (130-400) MPV 10.2 fL fL (7.4-10.4) Neut % (Auto) 59.6 % % Lymph % (Auto) 25.4 % % [place] % (Auto) 7.4 % % Eos % (Auto) 6.4 % % Baso % (Auto) 1.0 % % Neut # (Auto) 5.34 10^3/uL 10^3 /uL (1.8-7.7) Lymph # (Auto) 2.3 10^3/uL 10^3/ uL (0.8-4.8) [place] # (Auto) 0.7 10^3/uL 10^3/ uL (0.2-0.9) Eos # (Auto) 0.6 10^3/uL 10^3/ uL (0.0-0.8) Baso # (Auto) 0.1 10^3/uL 10^3/ uL (0.0-0.1) Nucleated RBC % (a uto) 0 % % Nucleated RBCs # 0.0 /100WBC /100W BC Sodium 139 mmol/L mmol/L (136-145) Potassium 4.4 mmol/L mmol/L (3.5-5.1) Chloride 104 mmol/L mmol/L (98-107) Carbon Dioxide 24 mmol/L mmol/L (22-29) Anion Gap 15.4 (5-19) BUN 37 mg/dL H mg/dL (8-23) Creatinine 3.0 mg/dL H mg/dL (0.7-1.2) GFR Calculation 21.5 mL/min L mL/ min (90-130) Glucose 85 mg/dL mg/dL (65-115) Calculated Osmolal ity 296 mOsm/kg H mOs m/kg (285-295) Calcium 8.9 mg/dL mg/dL (8.5-10.5) Discharge Plan Discharge Patient Disposition: Home Clinical Impression: Acute urinary retention Condition: Stable Prescriptions: No Action acetaminophen 650 mg Tablet Extended Release 1,300 mg PO Q4H PRN (Reason: Pain) RF: 0 omeprazole 20 mg Capsule,Delayed Release(Dr/Ec) 20 mg PO DAILY PRN (Reason: Acid Reflux) RF: 0 tamsulosin 0.4 mg Capsule 0.4 mg PO DAILY 30 Days Qty: 30 RF: 3 nitrofurantoin monohyd/m-cryst 100 mg capsule 100 mg PO Q12H RF: 0 Discharge Orders: Discharge ED (Routine); Ordered 01/17/21 Ordered By: Kathya Pratt Referrals: Jeison Beauchamp, [Primary Care Provider] - Discharge Diet: Advance as tolerated Discharge Activity: Resume usual activity Patient Instructions: Urinary Retention in Men (ED) Activity Restrictions/Additional Instructions: Please follow-up with Dr. Schwartz your primary care provider for further evaluation of your kidney functions. Come back to the emergency room if you have any new or concerning complaints. Coding Level of Care Code ED Flying Shear Operator for Andrea Mckenzie
[2021-01-17 16:28] LABS: Basophils # 0.1 10^3/uL (0.0-0.1); Eosinophils # 0.6 10^3/uL (0.0-0.8); Eosinophils % 6.4 %; Hematocrit 37.5 % (42.0-52.0); Hemoglobin 11.6 g/dL (11.7-16.6); Lymphocytes # 2.3 10^3/uL (0.8-4.8); Lymphocytes % 25.4 %; Mean Corpuscular HGB Conc 30.9 g/dL (30.0-36.0); Mean Corpuscular Hemoglobin 29.6 pg (28.0-34.0); Mean Corpuscular Volume 95.7 fl (80-94); Mean Platelet Volume 10.2 fL (7.4-10.4); Monocytes # 0.7 10^3/uL (0.2-0.9); Monocytes % 7.4 %; Neutrophils # 5.34 10^3/uL (1.8-7.7); Neutrophils % 59.6 %; Nucleated Red Blood Cells % 0 %; Platelet Count 284 10^3/cmm (130-400); Red Blood Count 3.92 10^6/uL (4.1-5.3); Red Cell Distribution Width 12.9 % (12.1-15.1)
[2021-01-17 16:58] LABS: Anion Gap 15.4 (5-19); Blood Urea Nitrogen 37 mg/dL (8-23); Calcium 8.9 mg/dL (8.5-10.5); Carbon Dioxide 24 mmol/L (22-29); Chloride 104 mmol/L (98-107); Glomerular Filtration Rate 21.5 mL/min (90-130); Glucose 85 mg/dL (65-115); Osmolality Calculated 296 mOsm/kg (285-295); Potassium 4.4 mmol/L (3.5-5.1); Sodium 139 mmol/L (136-145)
[2021-01-17 18:04] VITALS: BP 138/91; PULSE 72; RESP 14
== END 2021-01-17 18:04 | disposition home or self-care (01) ==
PROVIDERS: Emergency Provider Emergency Medicine; PCP Family Medicine
DX: R33.9 Retention of urine, unspecified (principal); N13.30 Unspecified hydronephrosis; F17.210 Nicotine dependence, cigarettes, uncomplicated
CPT/HCPCS: 51702; 80048; 85025; 99283

== ENCOUNTER 2022-04-08 09:42 | Emergency (ER) | payer MEDICAID, SELFPAY ==
[2022-04-08 09:51] VITALS: BP 135/90; PULSE 81; RESP 20; TEMP 36.8; O2SAT 97; BMI 27.0
--- NOTE | 2022-04-08 11:16 | W.ED.BACK ---
HPI - Back Pain/Injury General: Chief Complaint: Back Pain/Injury Stated Complaint: Lower back pain and sick Time Seen by Provider: 04/08/22 10:59 Source: patient and family Mode of arrival: ambulatory Limitations: no limitations History of Present Illness: This patient makes his way to the emergency department because of concerns about possible urinary tract infection as well as some low back pain. He states that approximately a week or so ago he developed upper airway congestion cough and just general malaise. He states that family members who have been visiting over the holidays were recovering from similar illness and he thinks he contracted it from them. States he, laid around and was in bed for several days because not feeling well and has had a decreased appetite but is able to drink fluids quite readily and well without any difficulty. He states he does eat but he gets some loose stools with eating. No blood in his stools no black tarry stools. He states he has a longstanding history of urinary retention and prostatic hypertrophy contributing to distended bladder. He thinks he was also diagnosed as possible having MS causing some issues with his bladder distention but has not seen a neurologist for confirmation and additional evaluation of that concern. He states he is taking his Flomax and other medications as prescribed and feels like his urine stream is improved over previous. He states he does feel like he needs to urinate now. He denies any loss of bowel or bladder control. He does have a history of spinal stenosis and chronic back pain and thinks his coughing may have exacerbated his back pain. No falls or other injuries. No fevers in last 48 hours. He also thinks his coughing is caused some bulging in his left groin. He has never had this prior to this current illness. No prior abdominal surgeries. MD elicited complaint: back pain Location: lumbar spine Associated symptoms: Reports dysuria, nausea and urinary urgency; Deny chills, difficulty walking, fever(s), hematuria, syncope or vomiting Review of Systems Const: Denies: fever(s) or chills ENMT: Reports: nasal discharge and nasal congestion; Denies: throat pain or odynophagia Card: Denies: chest pain, palpitations, syncope or pre-syncope Resp: Reports: non-productive cough; Denies: wheezing or stridor GI: Reports: nausea and diarrhea; Denies: vomiting, hematochezia or melena : Reports: dysuria and urinary urgency; Denies: flank pain, hematuria, testicular pain or testicular mass Musc: Reports: back pain Neuro: Denies: numbness in extremities, weakness in extremities or difficulty walking PFSH ED PFSH: Medical History BPH loc w urin obs/LUTS Hydronephrosis Obstructive uropathy Urinary retention Family History Mother , AT AGE 85 UNCONTROLLED HEMORRHAGING Bleeding disorder Father , AT AGE 70 BLADDER CANCER Cancer Other CAD (coronary artery disease) Diabetes Social History Alcohol intake: never Marital status: Current occupational status: unemployed History of recent travel: No Physical Exam Narrative: EXAM NARRATIVE: He appears to be comfortable. He talks in complete sentences without any conversational dyspnea. Const: COMMON NORMALS: no acute distress, average body habitus and patient oriented x3 GENERAL APPEARANCE: cooperative and comfortable ORIENTATION/CONSCIOUSNESS: Yes awake HENMT: COMMON NORMALS: normocephalic, Normal nasal mucous membranes and turbinates present, moist oral mucous membranes and oropharynx normal HEAD & SCALP: normocephalic NOSE: Normal nasal mucous membranes and turbinates present Eye: COMMON NORMALS: Equal, round and reactive pupils present and EOMs intact bilaterally PUPIL: Yes Equal, round and reactive pupils present Neck/C-Spine: COMMON NORMALS: full ROM, no lymphadenopathy and no JVD Chest: COMMONS NORMALS: normal inspection of the chest and normal palpation of entire chest wall Resp: COMMON NORMALS: normal respiratory effort, No retractions, No use of accessory muscles and clear to auscultation bilaterally EFFORT & INSPECTION: Yes able to speak in complete sentences AUSCULTATION: clear to auscultation bilaterally Cardio: COMMON NORMALS: no JVD, regular rate, regular rhythm, No murmurs present (Cardio) and Peripheral pulses 2+ throughout RATE: regular rate RHYTHM: regular rhythm PERIPHERAL PULSES: Peripheral pulses 2+ throughout GI: COMMON NORMALS: Soft to palpation, non-tender, no masses and no bruits PALPATION: Yes Soft to palpation OTHER: Abdominal examination is remarkable for some distention in his lower abdomen up to about the inferior aspect of his umbilicus. Examination of his lower abdomen reveals some weakness of the left lower abdomen with some increased pressure against examining hand with Valsalva however no obvious hernia sac, disruption of the abdominal wall etc. at this time. : PENIS: normal penis and circumcised SCROTUM: Yes testes descended bilaterally, No inguinal hernia, No Scrotal tenderness present, No scrotal swelling and No scrotal mass Back/Pelvis: COMMON NORMALS: thoracic and lumbar spine normal to inspection and straight leg raise negative bilaterally THORACIC SPINE/UPPER BACK: Yes normal to inspection, No thoracic spinal tenderness and No paraspinal muscle tenderness LUMBAR SPINE/LOWER BACK: Yes lumbar ROM normal and Yes paraspinal muscle tenderness SACROILIAC JOINTS: Yes SI joint(s) abnormal SI joint details: tender to palpation Extremity: COMMON NORMALS: normal to inspection, full ROM, no calf tenderness and no pedal edema Neuro: COMMON NORMALS: patient oriented x3, moves all extremities, no focal motor deficits and no sensory deficits noted Course Vital Signs: Vital signs: Vital Signs Temperature 98.3 F 04/08/22 09:51 Pulse Rate 81 04/08/22 09:51 Respiratory Rate 20 H 04/08/22 09:51 Blood Pressure 135/90 04/08/22 09:51 Pulse Oximetry 97 04/08/22 09:51 Oxygen Delivery Me thod 04/08/22 09:51 MDM - Back Pain/Injury Medical Decision Making This patient made his way to the emergency department because of symptoms of flareup of his chronic low back pain without any red flag symptoms or findings as well as concerned about possible urinary tract infection and possible hernia. Clinical examination was reassuring and that there was some discernible weakness of the left lower abdominal wall but no palpable hernia and no scrotal masses indirect hernias testicular discomfort. 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 A bedside ultrasound was obtained which revealed significant amount of urinary retention within his bladder. Consideration of possible diagnosis and eliminated clinically were undertaken. No evidence of red flag symptoms and no evidence of weakness numbness etc. to suggest a nerve compression symptom syndrome at this time. He does have a history of chronic urinary retention and recurrent urinary tract infections and today's spontaneously voided urine revealed that he has findings consistent and supportive of a recurrent urinary tract infection. A repeat bedside ultrasound was obtained after voiding and is still showed considerable amount of urine retained within the bladder but he was asymptomatic and states he had not taken his Flomax or finasteride finasteride yet today. He has no evidence of a hernia at this time but does have some lower abdominal wall weakness suggestive of potential for development of direct hernia which we discussed. His clinical exam did not reveal any findings to suggest additional testing, observation or or consideration for admission at this time. Patient has ability to self cath if he feels distended which she does not at this time. We will go ahead and start him on an antibiotic to cover his lower urinary tract infection, a cough suppressant to help with his cough. No clinical evidence of pneumonia given the no hypoxia, no fever and clear lungs on auscultation today. He has plans for follow-up with neurology in [place] and I strongly recommended he continue and follow through with that plan. We also discussed return precautions regarding fever chills inability to pass urine focal weakness etc. Stable at this time for discharge. Medical Records I reviewed the patient's medical records. Labs I reviewed the patient's lab results. Laboratory Results Urine Color Light yellow (Yellow) 04/08/22 11:35 Urine Appearance Cloudy (CLEAR) A 04/08/22 11:35 Urine pH 5 (5-7) 04/08/22 11:35 Ur Specific [place] 1.010 (1.005-1.030) 04/08/22 11:35 Urine Protein Neg (Negative) 04/08/22 11:35 Urine Glucose (UA) Norm (Normal) 04/08/22 11:35 Urine Ketones Negative (Negative) 04/08/22 11:35 Urine Blood 2+ (Negative) H 04/08/22 11:35 Urine Nitrate Negative (Negative) 04/08/22 11:35 Urine Bilirubin Neg (Negative) 04/08/22 11:35 Urine Urobilinogen Norm mg/dL (Negative) 04/08/22 11:35 Ur Leukocyte Esterase 2+ (Negative) H 04/08/22 11:35 Urine RBC None /hpf (0-2) 04/08/22 11:35 Urine WBC Too numerous to cnt /hpf (0-5) H 04/08/22 11:35 Ur Squamous Epith Cells None /hpf (0-5) 04/08/22 11:35 Amorphous Sediment Not Reportable 04/08/22 11:35 Urine Bacteria 1+ /hpf (NONE) H 04/08/22 11:35 Discharge Plan Discharge Patient Disposition: Home Clinical Impression: Dysfunction, bladder, Urinary tract infection, Cough Condition: Stable Prescriptions: New sulfamethoxazole-trimethoprim 800-160 mg tablet 1 tab PO DAILY 10 Days Qty: 20 0RF benzonatate 200 mg capsule 200 mg PO TID PRN (Reason: cough) Qty: 30 0RF No Action tamsulosin 0.4 mg capsule See Rx Instructions .ROUTE .COMPLEX Qty: 60 3RF Dose Instruction: TAKE ONE CAPSULE BY MOUTH TWICE DAILY Rx Instructions: TAKE ONE CAPSULE BY MOUTH TWICE DAILY acetaminophen 650 mg Tablet Extended Release 1,300 mg PO Q4H PRN (Reason: Pain) omeprazole 20 mg Capsule,Delayed Release(Dr/Ec) 20 mg PO DAILY PRN (Reason: Acid Reflux) finasteride 5 mg tablet 5 mg PO DAILY Discharge Orders: Discharge ED (Routine); Ordered 04/08/22 Ordered By: Gareth Castillo Referrals: Jeison Beauchamp, [Primary Care Provider] - Discharge Diet: Usual diet Discharge Activity: Increase activity as tolerated Patient Instructions: Opioid Safety, Pain Management Activity Restrictions/Additional Instructions: Take all your usual prescribed medications. We have prescribed an antibiotic as well as something to help suppress your cough. Take those as directed. Monitor your urine output and if you are feeling distended and have had no or little urine output in 8 hours go ahead and self cath. Should you develop fevers, increasing discomfort or any concerns return to this or the nearest emergency department. Follow-up with your plan to consult neurology in [place] over the next week. If you have any other concerns return to this or the nearest emergency department. Coding Level of Care Code ED [employer] Account Manager for Andrea Mckenzie Exam Comprehensive
[2022-04-08 11:53] LABS: Urine Color Light yellow (Yellow)
[2022-04-08 11:54] LABS: Add Urine Microscopic? YES; Bilirubin Urine Neg (Negative); Blood Urine 2+ (Negative); Glucose Urine UA Norm (Normal); Ketones Urine Negative (Negative); Leukocyte Esterase Urine 2+ (Negative); Nitrate Urine Negative (Negative); Protein Urine Neg (Negative); Urine Appearance Cloudy (CLEAR); Urobilinogen Urine Norm (Negative); WBC Urine TOO NUMEROUS TO CNT /hpf (0-5); pH Urine 5 (5-7)
[2022-04-08 11:55] LABS: Add Urine Culture? Yes; Bacteria Urine 1+ /hpf
[2022-04-08 12:37] VITALS: BP 135/78; PULSE 86; RESP 16; O2SAT 98
== END 2022-04-08 12:38 | disposition home or self-care (01) ==
PROVIDERS: Emergency Provider Emergency Medicine; PCP Family Medicine
DX: N39.0 Urinary tract infection, site not specified (principal); N31.9 Neuromuscular dysfunction of bladder, unspecified; R05.9 Cough, unspecified; N40.0 Benign prostatic hyperplasia without lower urinary tract symptoms
CPT/HCPCS: 81001; 87077; 87086; 87186; 99284